=== PATIENT | female | born 1995 | race Caucasian/White ===

== ENCOUNTER 2016-03-13 21:56 | Emergency (ER) | payer OTHER ==
[2016-03-13 22:18] VITALS: BP 117/60; PULSE 83; TEMP 98.5; BMI 17.4
[2016-03-13] MEDS ORDERED: IBUPROFEN 400 MG TABLET (FP) PO ONE (22:23)
--- NOTE | 2016-03-13 22:28 | PDOC ---
History of Present Illness - General Chief Complaint: Cold Symptoms Stated Complaint: FACE PAIN Time Seen by Provider: 03/13/16 22:16 History Source: Patient - History of Present Illness Timing/Duration: reports: yesterday Associated Symptoms: reports: cough, facial pain, fever/chills, headache, nasal congestion, nasal drainage. denies: earache, shortness of breath, sore throat, wheezing Past History - Past Medical History Allergies/Adverse Reactions: Allergies Allergy/AdvReac Type Severity Reaction Status Date / Time No Known Drug Allergies Allergy Verified 03/13/16 22:07 TURKEY Allergy Intermediate Hives Uncoded 03/13/16 22:07 Home Medications: Ambulatory Orders Azithromycin 250 mg PO DAILY #6 tablet 03/13/16 Anemia: Yes Asthma: No Cancer: No Cardiac Disorders: No Diabetes: No Disorders: Yes (uti's) HTN: No Suicide Attempt (Hx): No Seizures: No Thyroid Disease: No - Reproductive History (#): 2 Para: 1 - Immunization History Immunization Up to Date: Yes - Psycho/Social/Smoking Cessation Hx Anxiety: No Suicidal Ideation: No Smoking Status: No Smoking History: Never smoked Have you smoked in the past 12 months: Yes Number of Cigarettes Smoked Daily: 2 Information on smoking cessation initiated: No 'Breaking Loose' booklet given: 03/01/14 Hx Alcohol Use: No Drug/Substance Use Hx: No Substance Use Type: Alcohol Hx Substance Use Treatment: No Review of Systems - Review of Systems Constitutional: Yes: Chills, Fever HEENTM: Yes: Nose Congestion. No: Ear Pain, Throat Pain Respiratory: Yes: Cough. No: Shortness of Breath *Physical Exam - Vital Signs Last Vital Signs Temp Pulse Resp BP Pulse Ox 98.5 F 83 18 117/60 98 03/13/16 22:08 03/13/16 22:08 03/13/16 22:08 03/13/16 22:08 03/13/16 22:08 - Physical Exam General Appearance: Yes: Appropriately Dressed HEENT: positive: EOMI, Normal Voice, TMs Normal, Pharynx Normal, Sinus Tenderness (to maxillary sinuses b/l). negative: Scleral Icterus (L), Muffled/ Hoarse voice, Pharyngeal Erythema Neck: positive: Supple. negative: Lymphadenopathy (R), Lymphadenopathy (L) Respiratory/Chest: negative: Respiratory Distress Integumentary: positive: Dry, Warm Neurologic: positive: Fully Oriented, Alert, Normal Mood/Affect Medical Decision Making - Medical Decision Making 03/13/16 22:23 20-year-old female presents with headache with nasal congestion, clear rhinorrhea, facial pain and subj fever since yesterday. No sore throat, ear pain , body aches, n/v/d. No sick contacts. Pt appears uncomfortable in ED w/ sig ttp over maxillary sinuses concerning for possible sinusitis. Dc w/ zpack and supportive tx 03/13/16 22:28 *DC/Admit/Observation/Transfer Diagnosis at time of Disposition: URI (upper respiratory infection) Qualifiers: URI type: unspecified viral URI Qualified Code(s): J06.9 - Acute upper respiratory infection, unspecified; B97.89 - Other viral agents as the cause of diseases classified elsewhere - Discharge Dispostion Disposition: HOME Condition at time of disposition: Good - Prescriptions Prescriptions: Azithromycin 250 mg PO DAILY #6 tablet - Patient Instructions Printed Discharge Instructions: DI for Viral Upper Respiratory Infection -- Adult, Sinusitis
== END 2016-03-13 22:30 | disposition home or self-care (01) ==
LOC: JERFT 21:56 → JER 21:56 → JERFT 22:30
DX: J06.9 Acute upper respiratory infection, unspecified (principal); B97.89 Other viral agents as the cause of diseases classified elsewhere
CPT/HCPCS: 99281-25

== ENCOUNTER 2016-04-21 00:16 | Emergency (ER) | payer OTHER ==
[2016-04-21] MEDS ORDERED: SODIUM CHLORIDE 0.9% 1000 ML INFUS.BAG IV ONE (00:53)
[2016-04-21] MEDS ORDERED: ONDANSETRON 4 MG/2 ML VIAL IVPUSH ONE ×2 (00:56→02:59)
[2016-04-21] MEDS ORDERED: KETOROLAC TROMETHAMINE 15 MG/ML VIAL IVPUSH ONE (00:56)
[2016-04-21 01:01] VITALS: BMI 16.8
[2016-04-21] MEDS ORDERED: ONDANSETRON 4 MG/2 ML VIAL ONE ×3 (01:11→03:04)
[2016-04-21] MEDS ORDERED: KETOROLAC TROMETHAMINE 30 MG/1 ML VIAL ONE (01:11)
--- NOTE | 2016-04-21 01:14 | PDOC ---
History of Present Illness - General Chief Complaint: Pain Stated Complaint: ABD PAIN,DIARRHEA Time Seen by Provider: 04/21/16 00:26 - History of Present Illness Initial Comments: 04/21/16 01:10 CHIEF COMPLAINT: abdominal pain, vomiting, diarrhea HISTORY OF PRESENT ILLNESS: 20 yo A3 F with hx of gastritis and anemia presents to ED with severe abdominal pain accompanied by vomiting and diarrhea since today. Patient states she has been having stomach pain for the past week and it became unbearable today. She states she has not been able to eat very much this week but had fried chicken and cymraes fries this morning and then threw it up. She denies any fever, chills, constipation, or rectal bleeding. She states that she sees Dr. Capellan for GI and was told she might have celiac disease; she has a follow up appointment on 05/12. No recent travel or sick contacts. PAST MEDICAL HISTORY: Denies past medical history FAMILY HISTORY: Denies SOCIAL HISTORY: "I smoke hookah." Denies tobacco, alcohol, illicit drug use. SURGICAL HISTORY: D&C April 2015 ALLERGIES: No known drug allergies REVIEW OF SYSTEMS General/Constitutional: Denies fever or chills. Denies weakness, weight change. HEENT: Denies change in vision. Denies ear pain or discharge. Denies sore throat. Cardiovascular: Denies chest pain or shortness of breath. Respiratory: Denies cough, wheezing, or hemoptysis. Gastrointestinal: Epigastric pain, nausea, vomiting, diarrhea. Denies rectal bleeding. Genitourinary: Denies dysuria, frequency, or change in urination. Musculoskeletal: Denies joint or muscle swelling or pain. Denies neck or back pain. Skin and breasts: Denies rash or easy bruising. Neurologic: Denies headache, vertigo, loss of consciousness, or loss of sensation. PHYSICAL EXAM General Appearance: Frail, uncomfortable appearing, tearful. HEENT: Discolored teeth with worn enamel. EOMI, PERRLA, normal ENT inspection, normal voice, TMs normal, pharynx normal. No conjunctival pallor. No photophobia, scleral icterus. Respiratory/Chest: Lungs CTAB. Cardiovascular: RRR. S1, S2. Vascular Pulses: Dorsalis-Pedis (R): 2+, Dorsalis-Pedis (L): 2+ Gastrointestinal/Abdominal: Diffuse tenderness and guarding. Abdomen soft, non distended. No organomegaly, pulsatile mass, hernia, hepatomegaly, splenomegaly. Musculoskeletal/Extremities: Normal inspection. FROM of all extremities, normal capillary refill. Pelvis Stable. No CVA tenderness. No tenderness to extremities, pedal edema, swelling, erythema or deformity. Integumentary: Appropriate color, dry, warm. No cyanosis, erythema, jaundice or rash Neurologic: guinea pig breeder II-XII intact. Fully oriented, alert. Appropriate mood/affect. Motor strength 5/5. No appreciable EOM palsy, facial droop or sensory deficit. 04/21/16 02:58 Past History - Past Medical History Allergies/Adverse Reactions: Allergies Allergy/AdvReac Type Severity Reaction Status Date / Time No Known Drug Allergies Allergy Verified 04/21/16 00:21 TURKEY Allergy Intermediate Hives Uncoded 04/21/16 00:21 Home Medications: Ambulatory Orders Nitrofurantoin Macrocrystal [Nitrofurantoin] 100 mg PO BID #56 capsule 04/21/16 Ondansetron [Zofran *Odt*] 8 mg SL TID PRN #20 od.tablet 04/21/16 Anemia: Yes Asthma: No Cancer: No Cardiac Disorders: No Diabetes: No Disorders: Yes (uti's) HTN: No Suicide Attempt (Hx): No Seizures: No Thyroid Disease: No - Reproductive History (#): 2 Para: 1 - Immunization History Immunization Up to Date: Yes - Psycho/Social/Smoking Cessation Hx Anxiety: No Suicidal Ideation: No Smoking Status: No Smoking History: Never smoked Have you smoked in the past 12 months: Yes Number of Cigarettes Smoked Daily: 2 Information on smoking cessation initiated: No 'Breaking Loose' booklet given: 03/01/14 Hx Alcohol Use: No Drug/Substance Use Hx: No Substance Use Type: Alcohol Hx Substance Use Treatment: No *Physical Exam - Vital Signs Last Vital Signs Temp Pulse Resp BP Pulse Ox 97.6 F 111 H 14 103/53 98 04/21/16 00:22 04/21/16 00:22 04/21/16 00:22 04/21/16 00:22 04/21/16 00:22 ED Treatment Course - LABORATORY CBC & Chemistry Diagram: 04/21/16 01:00 04/21/16 01:00 - Medications Given in the ED: ED Medications Discontinued Medications Generic Name Dose Route Start Last Admin Trade Name Vitor PRN Reason Stop Dose Admin Ketorolac Tromethamine 15 mg 04/21/16 00:56 04/21/16 01:08 Toradol Injection - IVPUSH 04/21/16 00:57 15 mg ONCE ONE Administration Ondansetron HCl 4 mg 04/21/16 00:56 04/21/16 01:08 Zofran Injection IVPUSH 04/21/16 00:57 4 mg ONCE ONE Administration Sodium Chloride 1,000 ml 04/21/16 00:53 04/21/16 01:08 Normal Saline - IV 04/21/16 00:54 1,000 ml ONCE ONE Administration Medical Decision Making - Medical Decision Making 04/21/16 02:58 20 yo A3 F with hx of gastritis and anemia presents to ED with severe abdominal pain accompanied by vomiting and diarrhea since today. -CBC, CMP, lipase, esr, crp -UA, UCx -15 mg Toradol IV -4 mg Zofran IV -Abdomen & pelvis CT with contrast Labs: WBC 12.8 UA: +blood, WBC 20 04/21/16 05:46 CT results: COMPARISON: CT abdomen and pelvis March 01, 2014 FINDINGS: There is no bowel obstruction, free air, or free fluid. Negative for diverticulitis or colitis. Normal air and contrast-filled appendix is noted. Normal kidneys urinary tracts and urinary bladder. The right ovary is somewhat prominent. Suspect a 3 cm right adnexal cyst. If there is pain in this area, ultrasound of the pelvis may help to characterize and exclude any acute [facility] SCRE[facility] pathology. Normal liver. Normal spleen. Normal pancreas. Normal adrenal glands. Read by: Ethan Gillette MD Discussed with patient that ultrasound is not available until 7 am. Patient states she does not want to stay and would prefer to follow up with ultrasound as outpatient. Patient states she will follow up with Anna Stockton, her OB provider for further care. Advised patient to keep appointment with GI as well. Advised patient of signs and symptoms for return to ER; patient verbalized understanding and agrees to plan. *DC/Admit/Observation/Transfer Diagnosis at time of Disposition: UTI (urinary tract infection) Qualifiers: Urinary tract infection type: site unspecified Hematuria presence: without hematuria Qualified Code(s): N39.0 - Urinary tract infection, site not specified - Discharge Dispostion Admit: No - Prescriptions Prescriptions: Nitrofurantoin Macrocrystal [Nitrofurantoin] 100 mg PO BID #56 capsule Ondansetron [Zofran *Odt*] 8 mg SL TID PRN #20 od.tablet PRN Reason: Nausea And/Or Vomiting - Referrals Referrals: Alexsandra Benavidez MD [Primary Care Provider] - Anna Stockton [Other] - Patient Instructions Printed Discharge Instructions: DI for Ovarian Cyst Additional Instructions: Please take medications as prescribed. As discussed, please follow-up with [facility] within the next 2-3 days for an ultrasound for further evaluation of your ovarian cyst. Please keep your appointment with Dr. Capellan as well. If you experience vaginal bleeding (more than one soaked pad an hour), severe pain to the lower sides of your stomach, fever, persistent vomiting or diarrhea, or any new or worsening symptoms, please return to the ER. - Post Discharge Activity Work/School Note: Back to Work
[2016-04-21 01:17] LABS: BASOPHIL 0.3 % (0-2.0); EOSINOPHIL 0.2 % (0-4.5); MCH 29.8 pg (25.7-33.7); MCHC 33.3 g/dl (32.0-36.0); MEAN CELL VOLUME 89.4 fl (80-96); MEAN PLT VOLUME 7.9 fl (7.5-11.1); NEUTROPHILS 86.9 % (42.8-82.8); PLATELET COUNT 206 K/MM3 (134-434); RDW 12.5 % (11.6-15.6); WHITE BLOOD COUNT 12.8 K/mm3 (4.0-10.0)
[2016-04-21 01:43] LABS: ALBUMIN 4.6 g/dl (3.4-5.0); ALK PHOS 67 U/L (45-117); ANION GAP 11 (8-16); BILIRUBIN,TOTAL 0.5 mg/dL (0.2-1.0); CALCIUM 9.4 mg/dL (8.5-10.1); CO2 25 mmol/L (21-32); CREATININE 0.7 mg/dL (0.55-1.02); GLUCOSE,RANDOM 81 mg/dL (74-106); SGOT/AST 23 U/L (15-37); SGPT/ALT 19 U/L (12-78); TOT PROT 8.2 g/dl (6.4-8.2)
[2016-04-21 03:21] LABS: URINE APPEARANCE CLOUDY; URINE BILIRUBIN NEGATIVE (NEGATIVE); URINE COLOR YELLOW; URINE GLUCOSE (UA) NEGATIVE (NEGATIVE); URINE KETONE 1+ (NEGATIVE); URINE NITRITE NEGATIVE (NEGATIVE); URINE PROTEIN NEGATIVE (NEGATIVE); URINE UROBILINOGEN NEGATIVE E.U./dl (0.2-1.0)
[2016-04-21 03:24] LABS: URINE BLOOD 1+ (NEGATIVE); URINE LEUK ESTERASE 3+ (NEGATIVE)
[2016-04-21 03:26] LABS: URINE MUCUS MANY; URINE RBC 20 /hpf (0-3); URINE WBC 35 /hpf (3-5)
--- NOTE | 2016-04-21 05:36 | PDOC ---
*Physical Exam - Vital Signs Last Vital Signs Temp Pulse Resp BP Pulse Ox 97.6 F 111 H 14 103/53 98 04/21/16 00:22 04/21/16 00:22 04/21/16 00:22 04/21/16 00:22 04/21/16 00:22 ED Treatment Course - LABORATORY CBC & Chemistry Diagram: 04/21/16 01:00 04/21/16 01:00 - ADDITIONAL ORDERS Additional order review: Laboratory Results 04/21/16 04/21/16 04/21/16 03:10 01:00 01:00 Sodium 141 Potassium 3.8 Chloride 105 Carbon Dioxide 25 Anion Gap 11 BUN 14 D Creatinine 0.7 D Creat Clearance w eGFR > 60 Random Glucose 81 D Calcium 9.4 Total Bilirubin 0.5 D AST 23 D ALT 19 Alkaline Phosphatase 67 D Total Protein 8.2 Albumin 4.6 Lipase 119 Urine Color Yellow Urine Appearance Cloudy Urine pH 5.0 D Ur Specific Watson 1.023 Urine Protein Negative Urine Glucose (UA) Negative Urine Ketones 1+ H Urine Blood 1+ H Urine Nitrite Negative Urine Bilirubin Negative Urine Urobilinogen Negative Ur Leukocyte Esterase 3+ H D Urine RBC 20 Urine WBC 35 Ur Epithelial Cells Many Urine Mucus Many Urine HCG, Qual Negative 04/21/16 01:00 RBC 5.24 H D MCV 89.4 MCHC 33.3 RDW 12.5 MPV 7.9 Neutrophils % 86.9 H D Lymphocytes % 8.1 D Monocytes % 4.5 Eosinophils % 0.2 Basophils % 0.3 - Medications Given in the ED: ED Medications Discontinued Medications Generic Name Dose Route Start Last Admin Trade Name Danielq PRN Reason Stop Dose Admin Ketorolac Tromethamine 15 mg 04/21/16 00:56 04/21/16 01:08 Toradol Injection - IVPUSH 04/21/16 00:57 15 mg ONCE ONE Administration Ondansetron HCl 4 mg 04/21/16 00:56 04/21/16 01:08 Zofran Injection IVPUSH 04/21/16 00:57 4 mg ONCE ONE Administration Ondansetron HCl 4 mg 04/21/16 02:59 04/21/16 03:10 Zofran Injection IVPUSH 04/21/16 03:00 4 mg ONCE ONE Administration Sodium Chloride 1,000 ml 04/21/16 00:53 04/21/16 01:08 Normal Saline - IV 04/21/16 00:54 1,000 ml ONCE ONE Administration Medical Decision Making - Medical Decision Making 04/21/16 05:35 agree with care from SHAHEED Mederos *DC/Admit/Observation/Transfer Diagnosis at time of Disposition: UTI (urinary tract infection) - Discharge Dispostion Disposition: HOME - Prescriptions Prescriptions: Nitrofurantoin Macrocrystal [Nitrofurantoin] 100 mg PO BID #56 capsule Ondansetron [Zofran *Odt*] 8 mg SL TID PRN #20 od.tablet PRN Reason: Nausea And/Or Vomiting - Referrals Referrals: Anna Stockton [Other] Alexsandra Benavidez MD [Primary Care Provider] - - Patient Instructions Printed Discharge Instructions: DI for Ovarian Cyst Additional Instructions: Please take medications as prescribed. As discussed, please follow-up with [facility] within the next 2-3 days for an ultrasound for further evaluation of your ovarian cyst. Please keep your appointment with Dr. Capellan as well. If you experience vaginal bleeding (more than one soaked pad an hour), severe pain to the lower sides of your stomach, fever, persistent vomiting or diarrhea, or any new or worsening symptoms, please return to the ER. - Post Discharge Activity Work/School Note: Back to Work
[2016-04-21 06:13] VITALS: BP 138/79; PULSE 86; TEMP 98.5
== END 2016-04-21 06:10 | disposition home or self-care (01) ==
LOC: JER 00:16
PROC: 3E0333Z Introduction of Anti-inflammatory into Peripheral Vein, Percutaneous Approach (ICD-10-PCS; principal; 2016-04-21)
PROC: 3E033GC Introduction of Other Therapeutic Substance into Peripheral Vein, Percutaneous Approach (ICD-10-PCS; 2016-04-21)
DX: N39.0 Urinary tract infection, site not specified (principal)
CPT/HCPCS: 36415; 74177-TC; 80053; 81003; 81015; 83690; 84703; 85025; 85651; 87086; 96374; 96375; 96376; 99283-25

== ENCOUNTER 2017-08-17 13:32 | Emergency (ER) | payer OTHER ==
[2017-08-17 13:46] VITALS: BP 105/65; PULSE 87; TEMP 98.2; BMI 17.2
[2017-08-17] MEDS ORDERED: PSEUDOEPHEDRINE HCL 60 MG TABLET PO STA (14:33)
[2017-08-17] MEDS ORDERED: LORATADINE 10 MG TABLET PO ONE (14:33)
[2017-08-17] MEDS ORDERED: IBUPROFEN 400 MG TABLET (FP) PO ONE ×2 (14:34→14:51)
[2017-08-17] MEDS ORDERED: LORATADINE 10 MG TABLET ONE (14:37)
[2017-08-17] MEDS ORDERED: PSEUDOEPHEDRINE HCL 60 MG TABLET ONE (14:40)
--- NOTE | 2017-08-17 14:49 | PDOC ---
History of Present Illness - General Chief Complaint: Cold Symptoms Stated Complaint: COUGH, RASH Time Seen by Provider: 08/17/17 14:13 History Source: Patient Exam Limitations: No Limitations - History of Present Illness Initial Comments: 08/17/17 14:50 c/o cough stuffy nose sore throat for 2 weeks. Pt has rash to her back that she has had for years, worse after going to the beach 2 days ago. no fever no abd pain no back pain , daughter home with bronchitis Timing/Duration: reports: constant Severity: reports: mild Past History - Past Medical History Allergies/Adverse Reactions: Allergies Allergy/AdvReac Type Severity Reaction Status Date / Time No Known Drug Allergies Allergy Verified 08/17/17 13:41 TURKEY Allergy Intermediate Hives Uncoded 08/17/17 13:41 Home Medications: Ambulatory Orders Fluticasone Prop 0.05% Nasal [Flonase -] 1 - 2 spray NS DAILY #1 spray.pump Loratadine [Claritin -] 10 mg PO DAILY #14 tablet 08/17/17 Selenium Sulfide [Selenium Sulfide 2.25% Shampoo] 1 applic TP DAILY 7 Days #1 bottle 08/17/17 Anemia: Yes Asthma: No Cancer: No Cardiac Disorders: No COPD: No Diabetes: No Disorders: Yes (uti's) HTN: No Seizures: No Thyroid Disease: No - Reproductive History (#): 2 Para: 1 - Immunization History Immunization Up to Date: Yes - Suicide/Smoking/Psychosocial Hx Smoking Status: No Smoking History: Former smoker Have you smoked in the past 12 months: No Number of Cigarettes Smoked Daily: 2 Information on smoking cessation initiated: No 'Breaking Loose' booklet given: 03/01/14 Hx Alcohol Use: No Drug/Substance Use Hx: No Substance Use Type: Alcohol Hx Substance Use Treatment: No *Physical Exam - Vital Signs Last Vital Signs Temp Pulse Resp BP Pulse Ox 98.2 F 87 19 105/65 96 08/17/17 13:42 08/17/17 13:42 08/17/17 13:42 08/17/17 13:42 08/17/17 13:42 - Physical Exam General Appearance: Yes: Nourished, Appropriately Dressed HEENT: positive: EOMI, MUNIR, TMs Normal, Nasal Congestion Neck: positive: Supple Respiratory/Chest: positive: Lungs Clear, Normal Breath Sounds. negative: Crackles, Rales, Rhonchi, Stridor, Wheezing Cardiovascular: positive: Regular Rhythm, Regular Rate Gastrointestinal/Abdominal: positive: Normal Bowel Sounds, Soft Lymphatic: negative: Adenopathy Musculoskeletal: positive: Normal Inspection Extremity: positive: Normal Capillary Refill, Normal Inspection, Normal Range of Motion Integumentary: positive: Normal Color, Dry, Warm, Rash (back with pityriasis versicolor, patches of discoloration, scaly, some are paules some are macules ) Neurologic: positive: pricing clerk II-XII NML intact, Fully Oriented, Alert, Normal Mood/ Affect, Normal Response, Motor Strength 06/30 Medical Decision Making - Medical Decision Making 08/17/17 14:52 cc: cough stuffy nose, sore throat, joint pain, no fever will check for strep meds now for congestion, antihistamine and motrin 08/17/17 15:01 neg strep pos URI allergy like symptoms will prescribe selenium for the pityriasis rash strict follow up with PMD as discussed *DC/Admit/Observation/Transfer Diagnosis at time of Disposition: Pityriasis versicolor, Nasal congestion with rhinorrhea - Discharge Dispostion Disposition: HOME Condition at time of disposition: Good - Prescriptions Prescriptions: Fluticasone Prop 0.05% Nasal [Flonase -] 1 - 2 spray NS DAILY #1 spray.pump Loratadine [Claritin -] 10 mg PO DAILY #14 tablet Selenium Sulfide [Selenium Sulfide 2.25% Shampoo] 1 applic TP DAILY 7 Days #1 bottle - Referrals Referrals: Marquise Gamino [Primary Care Provider] - Reid Ye MD [Staff Physician] - - Patient Instructions Printed Discharge Instructions: Pityriasis Versicolor Additional Instructions: use the prescription shampoo for the rash on your back take claritin as prescribed use flonase nasal spray as directed take motrin as needed for pain follow with for follow up, for primary care if you do not use your current primary care , but you must follow up regarding the joint pains next week for further follow up - Post Discharge Activity
== END 2017-08-17 15:04 | disposition home or self-care (01) ==
LOC: JERFT 13:32
DX: B36.0 Pityriasis versicolor (principal); J34.89 Other specified disorders of nose and nasal sinuses
CPT/HCPCS: 87070; 87430; 99281-25

== ENCOUNTER 2018-02-01 02:43 | Emergency (ER) | payer OTHER ==
--- NOTE | 2018-02-01 03:45 | PDOC ---
History of Present Illness - General Chief Complaint: Migraine Headache Stated Complaint: PAIN/DIZZINESS Time Seen by Provider: 02/01/18 03:30 History Source: Patient - History of Present Illness Initial Comments: 02/01/18 04:56 22 year old female with headache and photophobia, chest discomfort x 4 days with bodyaches patient also reports denies neck pain/ stiffness, rash. patient reports that she was treated for + chlamydia 1 month ago now with green vaginal discharge and dysuria. denies any new STI exposure reports no sexcual acitivty for 1 month. denies NVD, abdominal pain / flank pain. patient 1 02/01/18 05:54 Past History - Past Medical History Allergies/Adverse Reactions: Allergies Allergy/AdvReac Type Severity Reaction Status Date / Time No Known Drug Allergies Allergy Verified 08/17/17 13:41 TURKEY Allergy Intermediate Hives Uncoded 08/17/17 13:41 Home Medications: Ambulatory Orders Fluticasone Prop 0.05% Nasal [Flonase -] 1 - 2 spray NS DAILY #1 spray.pump Loratadine [Claritin -] 10 mg PO DAILY #14 tablet 08/17/17 Selenium Sulfide [Selenium Sulfide 2.25% Shampoo] 1 applic TP DAILY 7 Days #1 bottle 08/17/17 Cephalexin Monohydrate [Keflex -] 500 mg PO BID #20 capsule 02/01/18 metroNIDAZOLE 0.75% VAG. GEL [Metrogel 0.75% *Vaginal Gel* -] 1 applic VG BID # 10 tube 02/01/18 Anemia: Yes Asthma: No Cancer: No Cardiac Disorders: No COPD: No Diabetes: No Disorders: Yes (uti's) HTN: No Seizures: No Thyroid Disease: No - Reproductive History (#): 2 Para: 1 - Immunization History Immunization Up to Date: Yes - Suicide/Smoking/Psychosocial Hx Smoking Status: No Smoking History: Never smoked Have you smoked in the past 12 months: No Number of Cigarettes Smoked Daily: 2 'Breaking Loose' booklet given: 03/01/14 Hx Alcohol Use: No Drug/Substance Use Hx: No Substance Use Type: Alcohol Hx Substance Use Treatment: No Review of Systems - Review of Systems Able to Perform ROS?: Yes Is the patient limited Maori proficient: No Constitutional: Yes: Loss of Appetite : Yes: Dysuria, Other (vaginal discharge) Musculoskeletal: No: Symptoms Reported, See HPI, Back Pain, Gout, Joint Pain, Joint Swelling, Muscle Pain, Muscle Weakness, Neck Pain, Joint Stiffness, Other Neurological: Yes: Headache, Other (photophobia) *Physical Exam - Vital Signs Last Vital Signs Temp Pulse Resp BP Pulse Ox 98.4 F 80 18 103/61 99 02/01/18 03:35 02/01/18 03:35 02/01/18 03:35 02/01/18 03:35 02/01/18 03:35 - Physical Exam General Appearance: Yes: Appropriately Dressed HEENT: positive: Other (no nuchal rigidity) Respiratory/Chest: positive: Lungs Clear, Normal Breath Sounds Cardiovascular: positive: Regular Rate Female Pelvic Exam: positive: normal external exam, other (green frothy discharge). negative: CMT Gastrointestinal/Abdominal: positive: Normal Bowel Sounds, Soft Musculoskeletal: positive: Normal Inspection Extremity: positive: Normal Capillary Refill, Normal Inspection, Normal Range of Motion Integumentary: positive: Normal Color, Dry, Warm Neurologic: positive: Fully Oriented, Alert, Normal Mood/Affect Moderate Sedation - Procedure Monitoring Vital Signs: Procedure Monitoring Vital Signs Temperature 98.4 F 02/01/18 03:35 Pulse Rate 80 02/01/18 03:35 Respiratory Rate 18 02/01/18 03:35 Blood Pressure 103/61 02/01/18 03:35 O2 Sat by Pulse Oximetry (%) 99 02/01/18 03:35 ED Treatment Course - LABORATORY CBC & Chemistry Diagram: 02/01/18 05:13 02/01/18 05:13 Medical Decision Making - Medical Decision Making 02/01/18 05:50 A: headache; UTI; BV P: labs UA IVF toradol reglan 02/01/18 06:50 patient has no headache at this time . photophobia resolved. will treat for BV and UTI. patient to follow up with pcp. will d/c home. *DC/Admit/Observation/Transfer Diagnosis at time of Disposition: Bacterial vaginosis UTI (urinary tract infection) Qualifiers: Urinary tract infection type: acute cystitis Hematuria presence: without hematuria Qualified Code(s): N30.00 - Acute cystitis without hematuria Headache Qualifiers: Headache type: tension-type Headache chronicity pattern: acute headache Intractability: not intractable Qualified Code(s): G44.209 - Tension-type headache, unspecified, not intractable - Discharge Dispostion Disposition: HOME Condition at time of disposition: Stable - Prescriptions Prescriptions: Cephalexin Monohydrate [Keflex -] 500 mg PO BID #20 capsule metroNIDAZOLE 0.75% VAG. GEL [Metrogel 0.75% *Vaginal Gel* -] 1 applic VG BID # 10 tube - Referrals Referrals: Marquise Gamino [Primary Care Provider] - - Patient Instructions Printed Discharge Instructions: Bacterial Vaginosis, Urinary Tract Infection Additional Instructions: drink plenty of fluids take cephalexin as prescribed follow up with your doctor as soon as possible. return to the ER if symptoms worsen - Post Discharge Activity Forms/Work/School Notes: Back to Work
[2018-02-01] MEDS ORDERED: ACETAMINOPHEN 325 MG TABLET (FP) PO ONE (03:46)
[2018-02-01] MEDS ORDERED: ACETAMINOPHEN 325 MG TABLET (FP) ONE (03:48)
[2018-02-01 04:02] VITALS: BMI 16.9
[2018-02-01 04:48] LABS: URINE APPEARANCE CLEAR; URINE BILIRUBIN NEGATIVE (<2.0 mg/dL); URINE COLOR LTYELLOW; URINE GLUCOSE (UA) NEGATIVE (NEGATIVE); URINE KETONE NEGATIVE (NEGATIVE); URINE LEUK ESTERASE 3+ (NEGATIVE); URINE NITRITE NEGATIVE (NEGATIVE); URINE PROTEIN NEGATIVE (NEGATIVE); URINE UROBILINOGEN NEGATIVE mg/dL (0.2-1.0)
[2018-02-01 04:49] LABS: HCG,QUALITATIVE URINE Negative
[2018-02-01 04:53] LABS: EPI CELLS FEW /HPF (FEW); URINE MUCUS RARE
[2018-02-01] MEDS ORDERED: SODIUM CHLORIDE 1,000 ML IV STA (04:53)
[2018-02-01] MEDS ORDERED: METOCLOPRAMIDE HCL INJECTION 10 MG/2 ML VIAL IVPB ONE (04:53)
[2018-02-01] MEDS ORDERED: KETOROLAC TROMETHAMINE 30 MG/1 ML VIAL IVPUSH ONE (04:54)
[2018-02-01] MEDS ORDERED: METOCLOPRAMIDE HCL INJECTION 10 MG/2 ML VIAL ONE (05:17)
[2018-02-01] MEDS ORDERED: KETOROLAC TROMETHAMINE 30 MG/1 ML VIAL ONE (05:17)
[2018-02-01 06:04] LABS: BASO % 0.4 % (0-2.0); EOS % 0.5 % (0-4.5); HEMATOCRIT 36.5 % (32.4-45.2); HEMOGLOBIN 12.2 GM/dL (10.7-15.3); LYMPH % 15.6 % (8-40); MCH 30.7 pg (25.7-33.7); MCHC 33.5 g/dl (32.0-36.0); MEAN CELL VOLUME 91.6 fl (80-96); MEAN PLT VOLUME 7.9 fl (7.5-11.1); MONO % 7.9 % (3.8-10.2); NEUT % 75.6 % (42.8-82.8); PLATELET COUNT 170 K/MM3 (134-434); RBC 3.98 M/mm3 (3.60-5.2); WHITE BLOOD COUNT 7.9 K/mm3 (4.0-10.0)
[2018-02-01 06:27] LABS: ALBUMIN 3.7 g/dl (3.4-5.0); ALK PHOS 66 U/L (45-117); ANION GAP 5 MMOL/L (8-16); BILIRUBIN,TOTAL 0.3 mg/dL (0.2-1); BLOOD UREA NITROGEN 8 mg/dL (7-18); CALCIUM 8.3 mg/dL (8.5-10.1); CHLORIDE 105 mmol/L (98-107); CO2 29 mmol/L (21-32); CREATININE 0.5 mg/dL (0.55-1.3); GLUCOSE,RANDOM 80 mg/dL (74-106); POTASSIUM 3.8 mmol/L (3.5-5.1); SGOT/AST 25 U/L (15-37); SGPT/ALT 26 U/L (13-61); SODIUM 140 mmol/L (136-145); TOT PROT 6.9 g/dl (6.4-8.2)
[2018-02-01 06:51] VITALS: BP 96/66; PULSE 78; TEMP 98.1
--- NOTE | 2018-02-01 16:00 | EKG ---
Test Reason : Blood Pressure : / mmHG Vent. Rate : 080 BPM Atrial Rate : 080 BPM P-R Int : 148 ms QRS Dur : 076 ms QT Int : 362 ms P-R-T Axes : 072 094 080 degrees QTc Int : 417 ms POOR DATA QUALITY, INTERPRETATION MAY BE ADVERSELY AFFECTED NORMAL SINUS RHYTHM RIGHTWARD AXIS BORDERLINE ECG WHEN COMPARED WITH ECG OF 22-APR-2015 15:15, NO SIGNIFICANT CHANGE WAS FOUND Confirmed by VIANCA MEJIA, ESTRADA ([id number]) on 02/01/2018 3:59:28 PM Referred By: Confirmed By:ESTRADA COLEY MD
== END 2018-02-01 07:02 | disposition home or self-care (01) ==
LOC: JER 02:43
PROC: 3E033GC Introduction of Other Therapeutic Substance into Peripheral Vein, Percutaneous Approach (ICD-10-PCS; principal; 2018-02-01)
PROC: 3E0333Z Introduction of Anti-inflammatory into Peripheral Vein, Percutaneous Approach (ICD-10-PCS; 2018-02-01)
DX: N30.00 Acute cystitis without hematuria (principal); N76.0 Acute vaginitis; B96.89 Other specified bacterial agents as the cause of diseases classified elsewhere; G44.209 Tension-type headache, unspecified, not intractable
CPT/HCPCS: 36415; 80053; 81003; 81015; 84703; 85025; 87086; 93005; 93010; 96374; 96375; 99282-25; J7030

== ENCOUNTER 2018-04-19 21:59 | Emergency (ER) | payer OTHER ==
[2018-04-19 22:11] VITALS: BP 113/64; PULSE 98; TEMP 102.3; BMI 17.9
--- NOTE | 2018-04-19 23:11 | PDOC ---
History of Present Illness - General Chief Complaint: Cold Symptoms Stated Complaint: CHEST PAIN Time Seen by Provider: 04/19/18 22:51 History Source: Patient Exam Limitations: No Limitations Past History - Past Medical History Allergies/Adverse Reactions: Allergies Allergy/AdvReac Type Severity Reaction Status Date / Time No Known Drug Allergies Allergy Verified 04/19/18 22:09 TURKEY Allergy Intermediate Hives Uncoded 04/19/18 22:09 Home Medications: Ambulatory Orders Fluticasone Prop 0.05% Nasal [Flonase -] 1 - 2 spray NS DAILY #1 spray.pump Loratadine [Claritin -] 10 mg PO DAILY #14 tablet 08/17/17 Selenium Sulfide [Selenium Sulfide 2.25% Shampoo] 1 applic TP DAILY 7 Days #1 bottle 08/17/17 Cephalexin Monohydrate [Keflex -] 500 mg PO BID #20 capsule 02/01/18 metroNIDAZOLE 0.75% VAG. GEL [Metrogel 0.75% *Vaginal Gel* -] 1 applic VG BID # 10 tube 02/01/18 Anemia: Yes Asthma: No Cancer: No Cardiac Disorders: No COPD: No Diabetes: No Disorders: No HTN: No Seizures: No Thyroid Disease: No Other medical history: anorexia - Reproductive History (#): 2 Para: 1 - Immunization History Immunization Up to Date: Yes - Suicide/Smoking/Psychosocial Hx Smoking Status: No Smoking History: Never smoked Have you smoked in the past 12 months: No Number of Cigarettes Smoked Daily: 2 'Breaking Loose' booklet given: 03/01/14 Hx Alcohol Use: No Drug/Substance Use Hx: No Substance Use Type: Alcohol Hx Substance Use Treatment: No *Physical Exam - Vital Signs Last Vital Signs Temp Pulse Resp BP Pulse Ox 102.3 F H 98 H 18 113/64 98 04/19/18 22:09 04/19/18 22:09 04/19/18 22:09 04/19/18 22:09 04/19/18 22:09 - Physical Exam General Appearance: No: Apparent Distress HEENT: positive: Pharyngeal Erythema, Tonsillar Exudate. negative: Muffled/ Hoarse voice, Nasal Congestion, Rhinorrhea Neck: positive: Lymphadenopathy (R), Lymphadenopathy (L) (+B/L tonsillar lymphadenopathy) Respiratory/Chest: positive: Lungs Clear, Normal Breath Sounds. negative: Respiratory Distress Cardiovascular: positive: Regular Rhythm, Tachycardia Gastrointestinal/Abdominal: positive: Normal Bowel Sounds, Soft. negative: Tender, Distended, Guarding, Rebound Integumentary: positive: Normal Color Neurologic: positive: Alert, Normal Mood/Affect Moderate Sedation - Procedure Monitoring Vital Signs: Procedure Monitoring Vital Signs Temperature 102.3 F H 04/19/18 22:09 Pulse Rate 98 H 04/19/18 22:09 Respiratory Rate 18 04/19/18 22:09 Blood Pressure 113/64 04/19/18 22:09 O2 Sat by Pulse Oximetry (%) 98 04/19/18 22:09 Medical Decision Making - Medical Decision Making 22 y/o F with hx of anorexia presents with fever, sore throat, swollen tonsils, SCOTT and body aches x 3 days. Mentions fever actually started today. Denies nasal congestion, rhinorrhea, cough, sob, cp, abd pain, vomiting, diarrhea, recent travel, sick contacts PE consistent with strep pharyngitis (patient meets 4/4 Cent[facility] Criteria) Patient wanted to get UCG testing before receiving any meds 04/19/18 23:11 Patient treated for strep throat with Motrin, Decadron and IM Penicillin Repeat temp 100.5 Patient feeling better and requesting to go home 04/20/18 00:43 *DC/Admit/Observation/Transfer Diagnosis at time of Disposition: Strep pharyngitis - Discharge Dispostion Disposition: HOME Condition at time of disposition: Improved Decision to Admit order: No - Referrals Referrals: Marquise Gamino [Primary Care Provider] - 2 Days - Patient Instructions Printed Discharge Instructions: DI for Strep Throat Additional Instructions: Thank you for choosing [facility]. It was a pleasure taking care of you. You were treated here for strep throat. You may take Motrin 600 mg every 4 hours by mouth as needed for mild to moderate pain. Take Motrin with food. Do salt water gargles Follow-up with your doctor in 2-3 days. Return to the Emergency Department if your symptoms worsen or persist or have other concerning symptoms. - Post Discharge Activity
[2018-04-19] MEDS ORDERED: PENICILLIN G BENZATHINE 1,200,000 UNIT/2 ML PFS IM ONE (23:39)
[2018-04-19] MEDS ORDERED: DEXAMETHASONE LIQUID 0.5 MG/5 ML 240 ML BULK BOTTLE PO ONE (23:39)
[2018-04-19] MEDS ORDERED: IBUPROFEN 400 MG TABLET (FP) PO ONE (23:39)
[2018-04-20] MEDS ORDERED: IBUPROFEN 400 MG TABLET (FP) PO ONE (00:17)
[2018-04-20] MEDS ORDERED: DEXAMETHASONE SOD PHOSPHATE 10 MG/1 ML VIAL ONE (00:17)
[2018-04-20] MEDS ORDERED: PENICILLIN G BENZATHINE 1,200,000 UNIT/2 ML PFS IM ONE (00:18)
== END 2018-04-20 01:03 | disposition home or self-care (01) ==
LOC: JER 21:59
DX: J02.0 Streptococcal pharyngitis (principal); B95.5 Unspecified streptococcus as the cause of diseases classified elsewhere
CPT/HCPCS: 84703; 96372; 99282-25

== ENCOUNTER 2018-07-10 15:15 | Emergency (ER) | payer OTHER ==
[2018-07-10] MEDS ORDERED: SODIUM CHLORIDE 500 ML IV STA (15:17)
--- NOTE | 2018-07-10 15:17 | PDOC ---
Rapid Medical Evaluation Time Seen by Provider: 07/10/18 15:15 Medical Evaluation: Allergies Allergy/AdvReac Type Severity Reaction Status Date / Time No Known Drug Allergies Allergy Verified 07/10/18 15:15 TURKEY Allergy Intermediate Hives Uncoded 07/10/18 15:15 07/10/18 15:16 HPI: with spotting 16 weeks gravid PE: No gross deficits ORDERS: CBC, CMP, PT/INR; Quant B US Discharge Disposition - Diagnosis Vaginal bleeding in - Referrals - Patient Instructions - Post Discharge Activity
[2018-07-10 15:19] VITALS: BMI 17.7
[2018-07-10] MEDS ORDERED: ACETAMINOPHEN 1000 MG/100 ML VIAL (NON FORMULARY) IVPB ONE (16:32)
[2018-07-10] MEDS ORDERED: SODIUM CHLORIDE 1,000 ML IV STA (16:32)
[2018-07-10] MEDS ORDERED: METOCLOPRAMIDE HCL INJECTION 10 MG/2 ML VIAL IVPB ONE (16:32)
--- NOTE | 2018-07-10 16:45 | PDOC ---
History of Present Illness - General Chief Complaint: Vaginal Bleeding Stated Complaint: R/O MISSCARIAGE Time Seen by Provider: 07/10/18 15:15 History Source: Patient - History of Present Illness Timing/Duration: reports: other (today) Abdominal Pain Onset Location: reports: other (lower abd and back) Past History - Past Medical History Allergies/Adverse Reactions: Allergies Allergy/AdvReac Type Severity Reaction Status Date / Time No Known Drug Allergies Allergy Verified 07/10/18 15:15 TURKEY Allergy Intermediate Hives Uncoded 07/10/18 15:15 Home Medications: Ambulatory Orders No122/Iron/Folic Acid [ Multi Tablet] 1 each PO DAILY 07/10/18 Anemia: Yes Asthma: No Cancer: No Cardiac Disorders: No COPD: No Diabetes: No Disorders: Yes (uti's) HTN: No Seizures: No Thyroid Disease: No - Reproductive History (#): 2 Para: 1 - Immunization History Immunization Up to Date: Yes - Suicide/Smoking/Psychosocial Hx Smoking Status: No Smoking History: Never smoked Have you smoked in the past 12 months: Yes Number of Cigarettes Smoked Daily: 2 'Breaking Loose' booklet given: 03/01/14 Hx Alcohol Use: No Drug/Substance Use Hx: No Substance Use Type: None Hx Substance Use Treatment: No Review of Systems - Review of Systems Constitutional: No: Chills, Fever ABD/GI: Yes: Nausea, Vomiting, Abdominal cramping. No: Blood Streaked Bowels, Constipated, Diarrhea, Rectal Bleeding : No: Dysuria, Flank Pain Musculoskeletal: Yes: Back Pain *Physical Exam - Vital Signs Last Vital Signs Temp Pulse Resp BP Pulse Ox 98.2 F 74 16 96/58 L 98 07/10/18 15:16 07/10/18 15:16 07/10/18 15:16 07/10/18 15:16 07/10/18 15:16 - Physical Exam General Appearance: Yes: Appropriately Dressed, Mild Distress HEENT: positive: Normal Voice Neck: positive: Supple Respiratory/Chest: negative: Respiratory Distress Gastrointestinal/Abdominal: positive: Normal Bowel Sounds, Tender, Soft Musculoskeletal: negative: CVA Tenderness Integumentary: positive: Dry, Warm Neurologic: positive: Fully Oriented, Alert, Normal Mood/Affect ED Treatment Course - LABORATORY CBC & Chemistry Diagram: 07/10/18 16:28 07/10/18 16:40 Medical Decision Making - Medical Decision Making 07/10/18 16:38 22 yo F, h/o gastritis, undernourished, (elective AB x 2), currently ~9- 10 weeks per pt w/ ? blighted ovum on outside US 07/02/2018 per pt, pain with abdominal cramping and vaginal spotting today. Complaining of intermittent nausea, vomiting that has been present throughout . With no change in baseline. Denies any dysuria, fever or chills See exam Threatened AB s/p US > 1 week ago w/ ? "blighted ovum" per pt Hypotensive here w/ diffuse ttp to lower abd and back -pain control -antiemetic -IVF -labs -US 07/10/18 17:23 US read as irreg ges sac ~6 weeks c/w probable anembryonic /blighted ovum, no def embryonic pole/yolk sac seen. UA w/ no e/o infxn. RH+. Beta >32K, no old to compare on records. Pt since improved w/ BP 105/62 on rpt. No sig vaginal bleeding at this time. Stable for discharge. Now reports that she has an appointment with her SECRETARY RECEPTIONIST tomorrow for medical management *DC/Admit/Observation/Transfer Diagnosis at time of Disposition: Vaginal bleeding in , Blighted ovum - Discharge Dispostion Disposition: HOME Condition at time of disposition: Stable - Referrals Referrals: Conrad Smith MD [Primary Care Provider] - - Patient Instructions Printed Discharge Instructions: Miscarriage Additional Instructions: It appears that you have a blighted ovum which is a type of early miscarriage where a fertilized egg does not develop into an embryo It is normal to have some abdominal cramping and vaginal bleed during this time. You can take tylenol for pain as needed Please follow up with your OB this week - Post Discharge Activity
[2018-07-10] MEDS ORDERED: ACETAMINOPHEN INJECTION 100 ML IVPB ONE (16:49)
[2018-07-10] MEDS ORDERED: METOCLOPRAMIDE HCL INJECTION 10 MG/2 ML VIAL ONE (16:49)
[2018-07-10 17:07] LABS: BASO % 0.7 % (0-2.0); EOS % 0.5 % (0-4.5); HEMATOCRIT 39.3 % (32.4-45.2); HEMOGLOBIN 13.1 GM/dL (10.7-15.3); LYMPH % 35.5 % (8-40); MCHC 33.4 g/dl (32.0-36.0); MEAN CELL VOLUME 90.1 fl (80-96); MONO % 7.7 % (3.8-10.2); NEUT % 55.6 % (42.8-82.8); PLATELET COUNT 185 K/MM3 (134-434); RBC 4.36 M/mm3 (3.60-5.2); RDW 12.1 % (11.6-15.6); WHITE BLOOD COUNT 4.2 K/mm3 (4.0-10.0)
[2018-07-10 17:12] LABS: HCG,QUALITATIVE URINE Positive
[2018-07-10 17:17] LABS: EPI CELLS 2.7 /HPF (0-5/HPF); PH,URINE >= 9.0 (5.0-8.0); URINE APPEARANCE CLEAR; URINE BACTERIA 27.1 /hpf (NEGATIVE); URINE BILIRUBIN NEGATIVE (NEGATIVE); URINE CASTS 1 /lpf (0-8); URINE COLOR YELLOW; URINE GLUCOSE (UA) NEGATIVE (NEGATIVE); URINE KETONE NEGATIVE (NEGATIVE); URINE LEUK ESTERASE TRACE (NEGATIVE); URINE NITRITE NEGATIVE (NEGATIVE); URINE PROTEIN NEGATIVE (NEGATIVE); URINE RBC 1 /hpf (0-4); URINE UROBILINOGEN 0.2 mg/dL (0.2-1.0); URINE WBC 2 /hpf (0-5)
[2018-07-10 17:20] LABS: INR 1.05 (0.83-1.09); PROTHROMBIN TIME (PATIENT) 12.4 SEC (9.7-13.0)
--- NOTE | 2018-07-10 17:32 | PDOC ---
*Physical Exam - Vital Signs Last Vital Signs Temp Pulse Resp BP Pulse Ox 98.2 F 74 16 96/58 L 99 07/10/18 15:16 07/10/18 15:16 07/10/18 15:16 07/10/18 15:16 07/10/18 16:55 ED Treatment Course - LABORATORY CBC & Chemistry Diagram: 07/10/18 16:28 07/10/18 16:40 - ADDITIONAL ORDERS Additional order review: Laboratory Results 07/10/18 07/10/18 16:28 16:28 PT with INR 12.40 INR 1.05 Urine Color Yellow Urine Appearance Clear Urine pH >= 9.0 H D Ur Specific [place] 1.011 Urine Protein Negative Urine Glucose (UA) Negative Urine Ketones Negative Urine Blood Negative Urine Nitrite Negative Urine Bilirubin Negative Urine Urobilinogen 0.2 Ur Leukocyte Esterase Trace Urine WBC (Auto) 2 Urine RBC (Auto) 1 Urine Casts (Auto) 1 U Epithel Cells (Auto) 2.7 Urine Bacteria (Auto) 27.1 Urine HCG, Qual Positive 07/10/18 16:28 RBC 4.36 MCV 90.1 MCHC 33.4 RDW 12.1 MPV 8.0 Neutrophils % 55.6 D Lymphocytes % 35.5 D Monocytes % 7.7 Eosinophils % 0.5 Basophils % 0.7 - Medications Given in the ED: ED Medications Discontinued Medications Generic Name Dose Route Start Last Admin Trade Name Freq PRN Reason Stop Dose Admin Acetaminophen 1,000 mg 07/10/18 16:32 07/10/18 16:54 Ofirmev Injection - IVPB 07/10/18 16:33 1,000 mg ONCE ONE Administration Sodium Chloride 500 mls @ 500 mls/hr 07/10/18 15:17 07/10/18 17:16 Normal Saline - IV 07/10/18 16:16 Not Given ASDIR STA Sodium Chloride 1,000 mls @ 1,000 mls/hr 07/10/18 16:32 07/10/18 16:48 Normal Saline - IV 07/10/18 17:31 1,000 mls/hr ASDIR STA Administration Metoclopramide HCl 10 mg 07/10/18 16:32 07/10/18 16:54 Reglan Injection - IVPB 07/10/18 16:33 10 mg ONCE ONE Administration Medical Decision Making - Medical Decision Making 07/10/18 17:32 Pt seen by Midlevel Provider under my direct supervision Ancillary studies reviewed I agree with plan as outlined by Midlevel Provider *DC/Admit/Observation/Transfer Diagnosis at time of Disposition: Vaginal bleeding in , Blighted ovum - Discharge Dispostion Disposition: HOME Condition at time of disposition: Stable - Referrals Referrals: Conrad Smith MD [Primary Care Provider] - - Patient Instructions Printed Discharge Instructions: Miscarriage Additional Instructions: It appears that you have a blighted ovum which is a type of early miscarriage where a fertilized egg does not develop into an embryo It is normal to have some abdominal cramping and vaginal bleed during this time. You can take tylenol for pain as needed Please follow up with your OB this week - Post Discharge Activity
[2018-07-10 18:40] VITALS: BP 105/62; PULSE 71; TEMP 98
[2018-07-10 18:43] LABS: ALBUMIN 4.2 g/dl (3.4-5.0); BILIRUBIN,TOTAL 0.8 mg/dL (0.2-1); CALCIUM 9.2 mg/dL (8.5-10.1); CREATININE 0.5 mg/dL (0.55-1.3); TOT PROT 7.4 g/dl (6.4-8.2)
== END 2018-07-10 18:50 | disposition home or self-care (01) ==
LOC: JER 15:15
PROC: 3E033NZ Introduction of Analgesics, Hypnotics, Sedatives into Peripheral Vein, Percutaneous Approach (ICD-10-PCS; principal; 2018-07-10)
PROC: 3E033GC Introduction of Other Therapeutic Substance into Peripheral Vein, Percutaneous Approach (ICD-10-PCS; 2018-07-10)
PROC: 3E0337Z Introduction of Electrolytic and Water Balance Substance into Peripheral Vein, Percutaneous Approach (ICD-10-PCS; 2018-07-10)
DX: O26.892 Other specified pregnancy related conditions, second trimester (principal); Z3A.16 16 weeks gestation of pregnancy; O02.0 Blighted ovum and nonhydatidiform mole; N93.9 Abnormal uterine and vaginal bleeding, unspecified
CPT/HCPCS: 36415; 76817-TC; 80053; 81003; 84702; 84703; 85025; 85610; 86850; 86900; 86901; 99284-25; J0131; J7030

== ENCOUNTER 2018-07-15 15:05 | Emergency (ER) | payer OTHER ==
[2018-07-15 15:26] VITALS: BMI 17.7
--- NOTE | 2018-07-15 17:34 | PDOC ---
*Physical Exam - Vital Signs Last Vital Signs Temp Pulse Resp BP Pulse Ox 98.4 F 86 22 H 100/67 98 07/15/18 15:25 07/15/18 15:25 07/15/18 15:25 07/15/18 15:25 07/15/18 15:25 *DC/Admit/Observation/Transfer Diagnosis at time of Disposition: Eloped from emergency department - Discharge Dispostion Disposition: ELOPED - Referrals Referrals: Marquise Gamino [Primary Care Provider] - - Patient Instructions - Post Discharge Activity
[2018-07-15] MEDS ORDERED: MORPHINE SULFATE 2 MG/ML VIAL IVPUSH ONE ×2 (18:36→19:54)
[2018-07-15] MEDS ORDERED: SODIUM CHLORIDE 1,000 ML IV STA (18:38)
[2018-07-15] MEDS ORDERED: MORPHINE SULFATE 2 MG/ML VIAL ONE (18:40)
--- NOTE | 2018-07-15 18:51 | PDOC ---
History of Present Illness - General Chief Complaint: Pain, Acute Stated Complaint: ABD PAIN Time Seen by Provider: 07/15/18 16:22 History Source: Patient Exam Limitations: No Limitations - History of Present Illness Initial Comments: 07/15/18 18:46 22 yo female pmh gastritis, irregular periods, (2 elective abortions) currently 9-10 weeks with current miscarriage presents to the ED with 4 days of abdominal pain and bloody pads. [facility] to terminate preg since but complains of persistent and worsening abdominal cramping. Pt seen in the ED, notable for: Beta 07/10 89008 US read as irreg ges sac ~6 weeks c/w probable anembryonic /blighted ovum, no def embryonic pole/yolk sac seen No sig vaginal bleeding Pt appears uncomfortable, swaying in bed with diffuse abdominal tenderness. Denies N/V/F/C, back pain, CP, SOB Past History - Past Medical History Allergies/Adverse Reactions: Allergies Allergy/AdvReac Type Severity Reaction Status Date / Time No Known Drug Allergies Allergy Verified 07/15/18 15:22 TURKEY Allergy Intermediate Hives Uncoded 07/15/18 15:22 Home Medications: Ambulatory Orders NK [No Known Home Medication] 07/15/18 Anemia: Yes Asthma: No Cancer: No Cardiac Disorders: No COPD: No Diabetes: No Disorders: Yes (uti's) HTN: No Seizures: No Thyroid Disease: No - Reproductive History (#): 2 Para: 1 Cervical CA: No Dysfunctional Uterine Bleeding: No Ectopic : No Endometrial CA: No Polycystic Ovaries: No Therapeutic (s) & number: Yes (2) Tubal Ligation: No - Immunization History Immunization Up to Date: Yes - Suicide/Smoking/Psychosocial Hx Smoking Status: No Smoking History: Unknown if ever smoked Have you smoked in the past 12 months: Yes Number of Cigarettes Smoked Daily: 2 'Breaking Loose' booklet given: 03/01/14 Hx Alcohol Use: No Drug/Substance Use Hx: No Substance Use Type: None Hx Substance Use Treatment: No Review of Systems - Review of Systems Constitutional: No: Chills, Fever Respiratory: No: Shortness of Breath Cardiac (ROS): No: Chest Pain, Edema, Palpitations ABD/GI: Yes: Abdominal cramping (diffuse). No: Abdominal Distended, Constipated , Diarrhea, Nausea, Vomiting : No: Burning, Dysuria, Discharge, Frequency, Flank Pain Musculoskeletal: No: Back Pain Integumentary: No: Rash Neurological: No: Weakness *Physical Exam - Vital Signs Last Vital Signs Temp Pulse Resp BP Pulse Ox 98.4 F 86 22 H 100/67 98 07/15/18 15:25 07/15/18 15:25 07/15/18 15:25 07/15/18 15:25 07/15/18 15:25 - Physical Exam General Appearance: Yes: Nourished, Appropriately Dressed, Apparent Distress ( pt swaying in pain ) HEENT: positive: EOMI Neck: positive: Supple. negative: Rigid Respiratory/Chest: positive: Lungs Clear, Normal Breath Sounds, Rapid RR (due to pain). negative: Accessory Muscle Use, Crackles, Rales, Rhonchi, Stridor, Wheezing Cardiovascular: positive: Regular Rhythm, Regular Rate, S1, S2. negative: Edema , JVD, Murmur Vascular Pulses: Dorsalis-Pedis (R): 4+, Doralis-Pedis (L): 4+ Gastrointestinal/Abdominal: positive: Normal Bowel Sounds, Flat, Soft, Tenderness (diffuse but distractable ). negative: Pulsatile Mass, Distended, Guarding, Rebound Extremity: positive: Normal Capillary Refill, Normal Inspection, Normal Range of Motion Integumentary: positive: Normal Color, Dry, Warm Neurologic: positive: Fully Oriented, Alert, Normal Mood/Affect, Normal Response ED Treatment Course - LABORATORY CBC & Chemistry Diagram: 07/15/18 19:00 07/15/18 19:00 - RADIOLOGY Radiology Studies Ordered: Category Date Time Status TRANSVAGINAL US PREG [US] Stat Ultrasound 07/15/18 18:35 Ordered Medical Decision Making - Medical Decision Making 07/15/18 19:02 22 yo female pmh gastritis, irregular periods, (2 elective abortions) currently 9-10 weeks with current miscarriage presents to the ED with 4 days of abdominal pain and bloody pads. Pts OB at Dr. Everardo merino medically treated to terminate preg since but complains of persistent and worsening abdominal cramping. Pt seen in the ED, notable for: Beta 07/10 80507 US read as irreg ges sac ~6 weeks c/w probable anembryonic /blighted ovum, no def embryonic pole/yolk sac seen No sig vaginal bleeding Pt appears uncomfortable, swaying in bed with diffuse abdominal tenderness. Denies N/V/F/C, back pain, CP, SOB Pt treated with Misoprostol, taken treated with morphine with minimal relief of pain Pt give high dose Motrin and percocet with moderate pain relief Will do TVUS, labs to repeat beta and treat pain with 2mg morphine then reassess vitals wnl vaginal exam discussed with pt, agrees no further utility in performing exam due to US findings TVUS shows complete , no retained products of conception Beta from 07/10 37164, today 7000s Pt has f/u appointment 07/18 with GALLERY OR MUSEUM TECHNICIAN, all labs and US report printed. Pt agrees to go to her appointment with all documents and given strict return precautions *DC/Admit/Observation/Transfer Diagnosis at time of Disposition: Complete , Abdominal cramping - Discharge Dispostion Disposition: HOME Condition at time of disposition: Stable Decision to Admit order: No - Referrals Referrals: Marquise Gamino [Primary Care Provider] - Anna Stockton CNM [Certified Nurse Director Safety] - - Patient Instructions Printed Discharge Instructions: DI for Miscarriage, DI for Therapeutic : Medical Additional Instructions: Please see your OB Doctor within the next 48 hours and make sure to bring copies of the blood work and ultrasound given to you today. Take over the counter Motrin as needed for pain as directed on the packaging. Return to the ER for new or concerning symptoms including but not limited to: excessive abdominal pain, high fevers, inability to eat or drink. Thank you - Post Discharge Activity
[2018-07-15 19:07] LABS: BASO % 0.4 % (0-2.0); EOS % 0.4 % (0-4.5); HEMATOCRIT 39.4 % (32.4-45.2); HEMOGLOBIN 13.2 GM/dL (10.7-15.3); LYMPH % 20.2 % (8-40); MCH 30.2 pg (25.7-33.7); MCHC 33.6 g/dl (32.0-36.0); MEAN CELL VOLUME 89.9 fl (80-96); MEAN PLT VOLUME 7.9 fl (7.5-11.1); MONO % 5.3 % (3.8-10.2); NEUT % 73.7 % (42.8-82.8); PLATELET COUNT 184 K/MM3 (134-434); RBC 4.39 M/mm3 (3.60-5.2); RDW 12.5 % (11.6-15.6); WHITE BLOOD COUNT 7.8 K/mm3 (4.0-10.0)
[2018-07-15 19:23] LABS: INR 0.99 (0.83-1.09); PROTHROMBIN TIME (PATIENT) 11.7 SEC (9.7-13.0)
[2018-07-15 19:26] LABS: ACTIVATED PTT 36.2 SECONDS (25.2-36.5)
[2018-07-15 20:02] LABS: ALBUMIN 4.2 g/dl (3.4-5.0); BILIRUBIN,TOTAL 0.4 mg/dL (0.2-1); CALCIUM 9.2 mg/dL (8.5-10.1); CREATININE 0.5 mg/dL (0.55-1.3); POTASSIUM 4.2 mmol/L (3.5-5.1); TOT PROT 7.6 g/dl (6.4-8.2)
[2018-07-15] MEDS ORDERED: IBUPROFEN 400 MG TABLET (FP) PO ONE ×2 (20:29→20:42)
[2018-07-15 20:38] VITALS: BP 103/67; PULSE 80; TEMP 98.3
--- NOTE | 2018-07-15 20:54 | PDOC ---
Documentation entered by Kelly Rider SCRIBE, acting as scribe for Rachel Lambert MD. Rachel Lambert MD: This documentation has been prepared by the Tereso quispe Daisy, SCRIBE, under my direction and personally reviewed by me in its entirety. I confirm that the documentation accurately reflects all work, treatment, procedures, and medical decision making performed by me. Attending Attestation - Resident Resident Name: Luther Jimenez - ED Attending Attestation I have performed the following: I have examined & evaluated the patient, The case was reviewed & discussed with the resident, I agree w/resident's findings & plan - HPI HPI: 07/15/18 19:05 22 yo female was and went to [address] [place] [address] on 07/10/18 and had a pelvic US that showed nonviable preg-(blighted ovum)no pole, irregular sac and bhcg greater thatn 32,000: She states she was given 4 pills to terminate the on but has increasing pelvic cramping since then 07/15/18 19:45 - Physicial Exam PE: 07/15/18 19:11 thin 22 yo female with severe pelvic cramping and some vaginal bleeding head ncat neck supple lungs cta b/l cvs [id number] abd flat, no rebound severe pelvic pain skin warm and dry no cva tenderness neuro axox3,ambulatory psych anxious - Medical Decision Making 07/15/18 19:14 diff diag : concern for retained products plan [id number] bhcg, pelvic US 07/15/18 20:49 RESULTS there are no retained products, there is sl thickened endometrium , no adnexal masses,no free fluid -[place] bhcg [place] 45511 to 7000 miscarriage in progress plan followup with mosaic worker at [address] [place] [address] this when she has an appt
== END 2018-07-15 21:06 | disposition home or self-care (01) ==
LOC: JER 15:05
PROC: 3E033NZ Introduction of Analgesics, Hypnotics, Sedatives into Peripheral Vein, Percutaneous Approach (ICD-10-PCS; principal; 2018-07-15)
DX: O03.6 Delayed or excessive hemorrhage following complete or unspecified spontaneous abortion (principal)
CPT/HCPCS: 36415; 76817-TC; 80053; 84702; 85025; 85610; 85730; 86850; 86900; 86901; 96374; 99283-25; J7030

== ENCOUNTER 2018-07-17 01:31 | Emergency (ER) | payer OTHER ==
[2018-07-17] MEDS ORDERED: SODIUM CHLORIDE 0.9% 500 ML INFUS.BAG IV ONE (02:04)
[2018-07-17] MEDS ORDERED: ACETAMINOPHEN 1000 MG/100 ML VIAL (NON FORMULARY) IVPB ONE (02:04)
--- NOTE | 2018-07-17 02:18 | PDOC ---
History of Present Illness - General Stated Complaint: PAIN,ABD/BACK, VAGINAL BLEEDING Time Seen by Provider: 07/17/18 02:02 - History of Present Illness Initial Comments: 07/17/18 03:39 The patient is a 22 year old female who presents with abdominal cramping and vaginal bleeding. States she had miscarriage last week for which her ivf embryologist prescribed Misoprostol. Patient took two pills on and had intermittent cramping and bleeding (w/passage of clots). Evaluated in our ED two days previous for her pain at which time TVUS showed no retained POC. Returns to our ED this morning as she continues to bleed and has passed five clots today. Denies chest pain, shortness of breath, fevers/chills, nausea/vomiting, diarrhea /constipation. As per EMR patient evaluated in our ED on 07/15 for abdominal cramping, vaginal bleed. TVUS showed no retained POC. Multiple attempts at analgesia and patient discharged home with ivf embryologist follow-up for Beta Quant trend. Past History - Past Medical History Allergies/Adverse Reactions: Allergies Allergy/AdvReac Type Severity Reaction Status Date / Time No Known Drug Allergies Allergy Verified 07/17/18 02:12 TURKEY Allergy Intermediate Hives Uncoded 07/17/18 02:12 Home Medications: Ambulatory Orders NK [No Known Home Medication] 07/15/18 Anemia: Yes Asthma: No Cancer: No Cardiac Disorders: No COPD: No Diabetes: No Disorders: Yes (uti's) HTN: No Seizures: No Thyroid Disease: No - Reproductive History (#): 2 Para: 1 Cervical CA: No Dysfunctional Uterine Bleeding: No Ectopic : No Endometrial CA: No Polycystic Ovaries: No Therapeutic (s) & number: Yes (2) Tubal Ligation: No Spontaneous : 2 - Immunization History Immunization Up to Date: Yes - Suicide/Smoking/Psychosocial Hx Smoking Status: No Smoking History: Unknown if ever smoked Have you smoked in the past 12 months: Yes Number of Cigarettes Smoked Daily: 2 'Breaking Loose' booklet given: 03/01/14 Hx Alcohol Use: No Drug/Substance Use Hx: No Substance Use Type: None Hx Substance Use Treatment: No Review of Systems - Review of Systems Constitutional: No: Fever HEENTM: No: Blurred Vision, Recent change in vision Respiratory: No: Cough, Shortness of Breath Cardiac (ROS): No: Chest Pain, Lightheadedness, Palpitations ABD/GI: Yes: Abdominal cramping. No: Constipated, Diarrhea, Nausea, Vomiting *Physical Exam - Physical Exam Comments: 07/17/18 03:52 Awake, alert, thin, anxious Abdomen: soft, mild TTP CV: S1, S2, no M/R/G Pelvic exam shows active vaginal bleed from cervix, os not visualized 2/2 to blood. Clot passage while in ED> Respiratory: CLTA B/L, no wheeze/crackle ED Treatment Course - LABORATORY CBC & Chemistry Diagram: 07/17/18 02:55 07/17/18 02:55 Medical Decision Making - Medical Decision Making 07/17/18 04:01 22 year old female s/p pill with abdominal cramping and vaginal bleeding Hb stable @ 12 Beta 5798 (< 7424 on 07/15) - trending downward suggestive of completed AB Will discharge home with close OB follow up for further evaluation. *DC/Admit/Observation/Transfer Diagnosis at time of Disposition: Vaginal bleeding - Discharge Dispostion Disposition: HOME Condition at time of disposition: Good Decision to Admit order: No - Referrals Referrals: Marquise Gamino [Primary Care Provider] - Anna Stockton CNM [Certified Nurse Imaging Specialist] - - Patient Instructions Additional Instructions: You must follow up with your ivf embryologist in the next 24 hours. Your care is not complete until you are evaluated by your OB-Clinical Administrative Coordinator. You can take Motrin every 4-6 hours (up to 3200 mg daily) for your pain. Return to the Emergency Department for any new/worsening/concerning symptoms. - Post Discharge Activity
[2018-07-17 02:30] VITALS: BP 103/60; PULSE 83; TEMP 98.3; BMI 17.9
[2018-07-17] MEDS ORDERED: ACETAMINOPHEN INJECTION 100 ML IVPB ONE (02:55)
[2018-07-17 03:00] LABS: BASO % 0.4 % (0-2.0); EOS % 0.6 % (0-4.5); HEMATOCRIT 35.8 % (32.4-45.2); HEMOGLOBIN 12.2 GM/dL (10.7-15.3); LYMPH % 19.9 % (8-40); MCH 30.8 pg (25.7-33.7); MEAN CELL VOLUME 90.6 fl (80-96); MEAN PLT VOLUME 7.8 fl (7.5-11.1); NEUT % 74.1 % (42.8-82.8); PLATELET COUNT 176 K/MM3 (134-434); RBC 3.95 M/mm3 (3.60-5.2); RDW 12.4 % (11.6-15.6); WHITE BLOOD COUNT 6.3 K/mm3 (4.0-10.0)
[2018-07-17 03:23] LABS: ALBUMIN 3.9 g/dl (3.4-5.0); BILIRUBIN,TOTAL 0.3 mg/dL (0.2-1); CALCIUM 8.7 mg/dL (8.5-10.1); CREATININE 0.5 mg/dL (0.55-1.3)
--- NOTE | 2018-07-17 04:56 | PDOC ---
Documentation entered by Janak Moreno SCRIBE, acting as scribe for Niurka Hagen DO. Niurka Hagen DO: This documentation has been prepared by the Tiffanie quispe Matthew, SCRIBE, under my direction and personally reviewed by me in its entirety. I confirm that the documentation accurately reflects all work, treatment, procedures, and medical decision making performed by me. Attending Attestation - Resident Resident Name: SanketAngelina - ED Attending Attestation I have performed the following: I have examined & evaluated the patient, The case was reviewed & discussed with the resident, I agree w/resident's findings & plan - HPI HPI: 07/17/18 03:23 Patient is a 22 year old female, with a significant past medical history of Anemia, who presents to the ED with complaints of abdominal pain that began x5 days ago. Patient reports experiencing abdominal pain that she states has gradually increased in intensity over time as well as associated vaginal bleeding. She reports having a miscarriage sunday afternoon. Patient reports coming into the ED for further evaluation after abdominal pain and bleeding did not subside over time. Denies chest pain, sob. Denies nausea, vomiting. Denies contact with sick individuals, out of state travelling. Denies dysuria, hematuria. Denies constipation, diarrhea. Denies any other symptoms. Allergies: NKDA. Social history: No smoking, No alcohol. No illicit drugs. Surgical history: None PMD: Dr. Gamino - Physicial Exam PE: 07/17/18 03:23 Agree with residents Physical Exam. 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
== END 2018-07-17 04:42 | disposition home or self-care (01) ==
LOC: JER 01:31
PROC: 3E033NZ Introduction of Analgesics, Hypnotics, Sedatives into Peripheral Vein, Percutaneous Approach (ICD-10-PCS; principal; 2018-07-17)
PROC: 3E0337Z Introduction of Electrolytic and Water Balance Substance into Peripheral Vein, Percutaneous Approach (ICD-10-PCS; 2018-07-17)
DX: N93.9 Abnormal uterine and vaginal bleeding, unspecified (principal)
CPT/HCPCS: 36415; 80053; 84702; 85025; 86850; 86900; 86901; 96374; 99283-25; J0131

== ENCOUNTER 2018-09-13 19:06 | Emergency (ER) | payer OTHER ==
[2018-09-13 19:31] VITALS: BP 101/42; PULSE 98; TEMP 98.5; BMI 15.6
--- NOTE | 2018-09-13 20:20 | PDOC ---
History of Present Illness - General Chief Complaint: Cold Symptoms Stated Complaint: NAUSEA/HEADACHE Time Seen by Provider: 09/13/18 20:00 History Source: Patient - History of Present Illness Initial Comments: 09/13/18 20:15 Chief complaint: Nasal congestion and cough Patient 22-year-old female states she had a miscarriage in July, came into the ER today with cough and congestion for 1 day, no shortness of breath, no fever. Patient also complaining of congestion. Patient states that she did a test at home earlier this week and also had one at the doctor's office 2 days ago that showed positive. Patient is requesting quantitative hCG so that we can tell her whether she can take Benadryl or not, whether this is from her old or this is a new although her regular doctor told her this was a new . Patient does not appear to be in any distress. GENERAL/CONSTITUTIONAL: No fever, weakness. dizziness HEAD, EYES, EARS, NOSE AND THROAT: No change in vision. No ear pain or discharge. No sore throat. + Nasal congestion CARDIOVASCULAR: No chest pain RESPIRATORY: No shortness of breath, +cough GASTROINTESTINAL: No pain, nausea, vomiting, diarrhea or constipation GENITOURINARY: No dysuria MUSCULOSKELETAL: No neck or back pain SKIN: No rash NEUROLOGIC: No headache, vertigo, loss of consciousness, or loss of sensation. GENERAL: The patient is awake, alert, and fully oriented, in no acute distress. HEAD: Normal with no signs of trauma. EYES: Pupils equal, round and reactive to light, sclera anicteric, conjunctiva clear. ENT: + Nasal congestion, normal speech NECK: supple CHEST: no Respiratory distress EXTREMITIES: Normal range of motion, no edema. NEUROLOGICAL: Normal speech, normal gait. SKIN: Warm, Dry Past History - Past Medical History Allergies/Adverse Reactions: Allergies Allergy/AdvReac Type Severity Reaction Status Date / Time No Known Drug Allergies Allergy Verified 07/17/18 02:12 TURKEY Allergy Intermediate Hives Uncoded 07/17/18 02:12 Home Medications: Ambulatory Orders NK [No Known Home Medication] 07/15/18 Anemia: Yes Asthma: No Cancer: No Cardiac Disorders: No COPD: No Diabetes: No Disorders: Yes (uti's) HTN: No Seizures: No Thyroid Disease: No - Reproductive History (#): 2 Para: 1 Cervical CA: No Dysfunctional Uterine Bleeding: No Ectopic : No Endometrial CA: No Polycystic Ovaries: No Therapeutic (s) & number: Yes (2) Tubal Ligation: No Spontaneous : 2 - Immunization History Immunization Up to Date: Yes - Suicide/Smoking/Psychosocial Hx Smoking Status: No Smoking History: Former smoker Have you smoked in the past 12 months: No Number of Cigarettes Smoked Daily: 2 If you are a former smoker, when did you quit?: 5 months Information on smoking cessation initiated: No 'Breaking Loose' booklet given: 03/01/14 Hx Alcohol Use: No Drug/Substance Use Hx: No Substance Use Type: None Hx Substance Use Treatment: No *Physical Exam - Vital Signs Last Vital Signs Temp Pulse Resp BP Pulse Ox 98.5 F 98 H 19 101/42 L 97 09/13/18 19:27 09/13/18 19:27 09/13/18 19:27 09/13/18 19:27 09/13/18 19:27 Medical Decision Making - Medical Decision Making 09/13/18 20:18 The 22-year-old female who was recently told that she was , 2 days ago in a doctor's office after having a acid test at home. Patient is requesting a quantitative hCG in hopes of figuring out if this is an old or new see if she can take Benadryl for her nasal congestion.. Explained to patient that this would not be an evaluation to help determine if she can take medication. That even if we did of a beta hCG which is not indicated we would not recommend that she take any medication because that would not and firm that this is not a new even if this is a lower level than her last level in July. At this point patient got annoyed, got up and cursed in Ugandan. Attempted to explain patient that I would gladly examine her and see if I could recommend any remedies for her and patient just looked at her friend and said something in Ugandan and walked out. Patient is not in any distress and had not complained any related complaints. *DC/Admit/Observation/Transfer Diagnosis at time of Disposition: Upper respiratory symptom - Discharge Dispostion Disposition: ELOPED Condition at time of disposition: Stable - Referrals - Patient Instructions - Post Discharge Activity
== END 2018-09-13 20:10 | disposition left against medical advice (07) ==
LOC: JERFT 19:06
DX: R09.89 Other specified symptoms and signs involving the circulatory and respiratory systems (principal)
CPT/HCPCS: 99281-25

== ENCOUNTER 2018-09-24 09:57 | Day surgery (SDC) | payer OTHER ==
[2018-09-23 09:46] VITALS: BMI 16.9
[2018-09-24 10:33] LABS: EOS % 1.5 % (0-4.5); HEMATOCRIT 37.9 % (32.4-45.2); HEMOGLOBIN 12.9 GM/dL (10.7-15.3); LYMPH % 42.4 % (8-40); MCH 30.7 pg (25.7-33.7); MEAN CELL VOLUME 90.5 fl (80-96); MEAN PLT VOLUME 7.6 fl (7.5-11.1); MONO % 7.7 % (3.8-10.2); NEUT % 47.4 % (42.8-82.8); PLATELET COUNT 214 K/MM3 (134-434); RBC 4.18 M/mm3 (3.60-5.2); RDW 11.8 % (11.6-15.6); WHITE BLOOD COUNT 3.5 K/mm3 (4.0-10.0)
[2018-09-24 11:10] LABS: ALBUMIN 3.8 g/dl (3.4-5.0); BILIRUBIN,TOTAL 0.6 mg/dL (0.2-1); BLOOD UREA NITROGEN 12.7 mg/dL (7-18); CALCIUM 8.8 mg/dL (8.5-10.1); CREATININE 0.6 mg/dL (0.55-1.3)
[2018-09-24] MEDS ORDERED: PROPOFOL 20 ML ONE (12:04)
[2018-09-24] MEDS ORDERED: LIDOCAINE HCL/PF 2% SDV 5ML VIAL ONE (12:04)
[2018-09-24] MEDS ORDERED: MIDAZOLAM HCL 2 MG/2 ML SINGLE DOSE VIAL ONE (12:04)
[2018-09-24] MEDS ORDERED: KETOROLAC TROMETHAMINE 30 MG/1 ML VIAL ONE (12:04)
[2018-09-24] MEDS ORDERED: ONDANSETRON 4 MG/2 ML VIAL IVPUSH PRN (12:26)
[2018-09-24] MEDS ORDERED: oxyCODONE HCL 5 MG TABLET PO PRN (12:26)
--- NOTE | 2018-09-24 12:27 | HP ---
History & Physical Update - History History: No Change - Physical Physical: No Change - Assessment Assessment: No Change - Plan Plan: No Change (retained POC, for suction D&C, informed consent obtained)
[2018-09-24] MEDS ORDERED: ACETAMINOPHEN 325 MG TABLET (FP) PO PRN (12:28)
[2018-09-24] MEDS ORDERED: CEFAZOLIN 1 GM/D5W 1 GM/50 ML BAG IVPB ONE (12:28)
[2018-09-24] MEDS ORDERED: IBUPROFEN 600 MG TABLET (FP) PO PRN (12:28)
[2018-09-24] MEDS ORDERED: LACTATED RINGERS SOLUTION 1,000 ML IV SCH ×2 (12:30)
[2018-09-24] MEDS ORDERED: ceFAZolin SODIUM 1 GM VIAL IVPB ONE (12:35)
[2018-09-24] MEDS ORDERED: ceFAZolin SODIUM 1 GM VIAL ONE (12:40)
[2018-09-24 14:11] VITALS: TEMP 98
[2018-09-24 15:57] VITALS: BP 96/56; PULSE 68
--- NOTE | 2018-09-25 08:18 | OP ---
Operative Note - Note: Operative Date: 09/24/18 Pre-Operative Diagnosis: retained products of conception Post-Operative Diagnosis: Same as Pre-op Anesthesia: MAC Estimated Blood Loss (mls): 5 Operative Report Dictated: Yes
--- NOTE | 2018-09-25 09:05 | OP ---
DATE OF OPERATION: 09/24/2018 PREOPERATIVE DIAGNOSIS: Retained products of conception. POSTOPERATIVE DIAGNOSIS: Retained products of conception. PROCEDURE PERFORMED: Suction dilatation and curettage. SURGEON: Vidhya Birmingham DO ANESTHESIA: MAC. ANESTHESIOLOGIST: Kendal Garcia MD ESTIMATED BLOOD LOSS: 5 mL. COMPLICATIONS: None. SPECIMENS REMOVED: Products of conception. COUNTS: Sponge and instrument count correct. DISPOSITION: Stable to PACU. INDICATIONS: The patient is a 22-year-old female who had been seen in the office after a medical termination and followed with what appeared to be retained products of conception. After failed medical management the patient elected to undergo a dilatation and curettage procedure. DESCRIPTION OF PROCEDURE: She signed consents for the procedure upon admission on September 24, 2018. She was then taken back to the operating room, given MAC anesthesia, and placed in the dorsal lithotomy position. A hard time-out was performed after she was prepped and draped in the normal sterile fashion. A speculum was placed inside the vagina. The cervix was easily identified and grasped with a tenaculum. Then the cervix was dilated to accommodate size 9 suction curette, which was advanced to the fundus of the uterus. Several passes of the suction curette were completed. Gentle curettage on all 4 akhtar with a sharp curette was completed until an adequate uterine cry was appreciated. One final pass with the suction was completed until all the tissue had been removed from the uterine cavity. Minimal bleeding was noted from the cervical os. Sponge and instrument count was reported to be correct. The patient was awoke from anesthesia, recovering in PACU in stable condition after the procedure. VIDHYA BIRMINGHAM DO /[id number]
--- NOTE | 2018-09-25 20:47 | PATH ---
Surgical Pathology Report Patient Name: SUSIE CAMPOVERDE Med. Rec. #: [id number] /Age/Gender: 1995 (Age: 22) / F Account: [id number] Location: [facility] Taken: 09/24/2018 Received: 09/24/2018 Reported: 09/25/2018 Physicians: Vidhya Birmingham M.D. Specimen(s) Received PRODUCTS OF CONCEPTION Clinical History Retained products of conception Final Diagnosis PRODUCTS OF CONCEPTION, SUCTION DILATION AND CURETTAGE: FOCALLY NECROTIC CHORIONIC VILLI AND DECIDUA CONSISTENT WITH PRODUCTS OF CONCEPTION. Electronically Signed Gilma Jimenez M.D. Gross Description Received in formalin labeled "products of conception," is a 2.8 x 2.5 x 0.3 cm aggregate of pink-rain soft tissue fragments. No definite villous tissue or somatic tissue is identified. The specimen is submitted in toto in one cassette. /09/24/2018 saudi09/24/2018
== END 2018-09-24 15:20 | disposition home or self-care (01) ==
LOC: JASU-SURG 09:57
PROVIDERS: ATTEND Obstetrics & Gynecology
PROC: 10D17ZZ Extraction of Products of Conception, Retained, Via Natural or Artificial Opening (ICD-10-PCS; principal; 2018-09-24 12:00)
DX: O73.1 Retained portions of placenta and membranes, without hemorrhage (principal)
CPT/HCPCS: 36415; 80053; 84702; 85025; 86850; 86900; 86901; 88305-TC; 94760

== ENCOUNTER 2019-01-16 15:20 | Emergency (ER) | payer OTHER ==
[2019-01-16 15:28] VITALS: BP 111/66; PULSE 85; TEMP 98; BMI 18.3
--- NOTE | 2019-01-16 15:29 | PDOC ---
Rapid Medical Evaluation Time Seen by Provider: 01/16/19 15:27 Medical Evaluation: Allergies Allergy/AdvReac Type Severity Reaction Status Date / Time lactose Allergy Intermediate Verified 09/23/18 09:47 No Known Drug Allergies Allergy Verified 07/17/18 02:12 TURKEY Allergy Intermediate Hives Uncoded 07/17/18 02:12 01/16/19 15:27 I have performed a brief in-person evaluation of this patient. The patient presents with a chief complaint of: , vomiting Pertinent physical exam findings:stable and in NAD, non-focal I have ordered the following:labs The patient will proceed to the ED for further evaluation.
[2019-01-16 16:44] LABS: BASO % 0.5 % (0-2.0); EOS % 0.4 % (0-4.5); HEMATOCRIT 34.1 % (32.4-45.2); HEMOGLOBIN 11.8 GM/dL (10.7-15.3); LYMPH % 22.7 % (8-40); MCH 30.8 pg (25.7-33.7); MCHC 34.5 g/dl (32.0-36.0); MEAN CELL VOLUME 89.3 fl (80-96); MEAN PLT VOLUME 7.9 fl (7.5-11.1); MONO % 6.3 % (3.8-10.2); NEUT % 70.1 % (42.8-82.8); PLATELET COUNT 201 K/MM3 (134-434); RBC 3.82 M/mm3 (3.60-5.2); RDW 13.2 % (11.6-15.6); WHITE BLOOD COUNT 5.9 K/mm3 (4.0-10.0)
[2019-01-16] MEDS ORDERED: SODIUM CHLORIDE 1,000 ML IV STA (16:53)
--- NOTE | 2019-01-16 17:10 | PDOC ---
History of Present Illness - General Chief Complaint: Nausea/Vomiting Stated Complaint: PCP SENT Time Seen by Provider: 01/16/19 15:27 History Source: Patient Exam Limitations: No Limitations - History of Present Illness Initial Comments: 01/16/19 16:54 HISTORY OF PRESENT ILLNESS: 23-year-old with a last menstrual period on 10/27/2018 who presents emergency department for evaluation of generalized weakness. 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 Patient reports having intermittent headaches. Patient is currently pain-free. She denies any abdominal pain or vaginal discharge/bleeding. She denies fever/chills. No recent travel or sick contacts. PAST MEDICAL HISTORY: Denies past medical history SURGICAL HISTORY: Denies ALLERGIES: No known drug allergies REVIEW OF SYSTEMS General/Constitutional: See HPI HEENT: Denies change in vision. Denies ear pain or discharge. Denies sore throat. Cardiovascular: Denies chest pain or shortness of breath. Respiratory: Denies cough, wheezing, or hemoptysis. Gastrointestinal: Denies nausea, vomiting, diarrhea or constipation. Denies rectal bleeding. Genitourinary: Denies dysuria, frequency, or change in urination. Musculoskeletal: Denies joint or muscle swelling or pain. Denies neck or back pain. Skin and breasts: Denies rash or easy bruising. Neurologic: Denies headache, vertigo, loss of consciousness, or loss of sensation. Psychiatric: Denies depression or anxiety. Endocrine: Denies increased thirst. Denies abnormal weight change. Hematologic/Lymphatic: Denies anemia, easy bleeding, or history of blood clots. Allergic/Immunologic: Denies hives or skin allergy. Denies latex allergy. PHYSICAL EXAM General Appearance: Well-appearing, appropriately dressed. No apparent distress , no intoxication. HEENT: EOMI, PERRLA, normal ENT inspection, normal voice, TMs normal, pharynx normal. No conjunctival pallor. No photophobia, scleral icterus. Moist mucous membranes. Neck: Supple. Trachea midline. No tenderness, rigidity, carotid bruit, stridor , lymphadenopathy, or thyromegaly. Respiratory/Chest: Lungs CTAB. No shortness of breath, chest tenderness, respiratory distress, accessory muscle use. No crackles, rales, rhonchi, stridor , wheezing, dullness Cardiovascular: RRR. S1, S2. No JVD, murmur, bradycardia, tachycardia. Vascular Pulses: Dorsalis-Pedis (R): 2+, Dorsalis-Pedis (L): 2+ Gastrointestinal/Abdominal: Normal bowel sounds. Abdomen soft, non-distended. No tenderness or rebound tenderness. No organomegaly, pulsatile mass, guarding, hernia, hepatomegaly, splenomegaly. Lymphatic: No adenopathy, tenderness. Musculoskeletal/Extremities: Normal inspection. FROM of all extremities, normal capillary refill. Pelvis Stable. No CVA tenderness. No tenderness to extremities, pedal edema, swelling, erythema or deformity. Integumentary: Appropriate color, dry, warm. 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 Fully oriented, alert. Appropriate mood/affect. Motor strength 5/5. No appreciable EOM palsy, facial droop or sensory deficit. 01/19/19 11:05 Past History - Past Medical History Allergies/Adverse Reactions: Allergies Allergy/AdvReac Type Severity Reaction Status Date / Time lactose Allergy Intermediate Verified 01/16/19 15:28 No Known Drug Allergies Allergy Verified 01/16/19 15:28 TURKEY Allergy Intermediate Hives Uncoded 01/16/19 15:28 Home Medications: Ambulatory Orders Cephalexin Monohydrate [Keflex -] 500 mg PO BID #14 capsule 01/16/19 Prenat 115/Iron Fum/Folic/Dss [ 19 Tablet] 1 tab PO DAILY 01/16/19 Anemia: Yes Asthma: No Cancer: No Cardiac Disorders: No CVA: No COPD: No CHF: No Dementia: No Diabetes: No GI Disorders: No Disorders: Yes (bacteria vaginosis, uti's) HTN: No Hypercholesterolemia: No Liver Disease: No Seizures: No Thyroid Disease: No - Surgical History Abdominal Surgery: No Appendectomy: No Cardiac Surgery: No Cholecystectomy: No Lung Surgery: No Neurologic Surgery: No - Reproductive History (#): 2 Para: 1 Cervical CA: No Dysfunctional Uterine Bleeding: No Ectopic : No Endometrial CA: No Polycystic Ovaries: No Therapeutic (s) & number: Yes (2) Tubal Ligation: No Spontaneous : 2 - Immunization History Immunization Up to Date: Yes - Psycho Social/Smoking Cessation Hx Smoking Status: No Smoking History: Never smoked Have you smoked in the past 12 months: No Number of Cigarettes Smoked Daily: 2 If you are a former smoker, when did you quit?: 5 months 'Breaking Loose' booklet given: 03/01/14 Hx Alcohol Use: No Drug/Substance Use Hx: No Substance Use Type: None Hx Substance Use Treatment: No *Physical Exam - Vital Signs Last Vital Signs Temp Pulse Resp BP Pulse Ox 98 F 85 18 111/66 98 01/16/19 15:22 01/16/19 15:22 01/16/19 15:22 01/16/19 15:22 01/16/19 15:22 ED Treatment Course - LABORATORY CBC & Chemistry Diagram: 01/16/19 16:20 01/16/19 16:20 - ADDITIONAL ORDERS Additional order review: 01/16/19 16:20 RBC 3.82 MCV 89.3 MCHC 34.5 RDW 13.2 MPV 7.9 Neutrophils % 70.1 Lymphocytes % 22.7 Monocytes % 6.3 Eosinophils % 0.4 Basophils % 0.5 Medical Decision Making - Medical Decision Making 01/16/19 17:10 A/P: 23-year-old woman with generalized weakness and first trimester Physical exam is unremarkable Basic labs Normal saline 1 L IV bolus Urinalysis, urine culture Reassess 01/16/19 18:43 Patient reports resolution of symptoms. Pt has tolerated PO's. UA notable for 1 + Leuk esterase and 14 WBC's on hpf. As patient is , I will treat for UTI as outpatient. I discussed the physical exam findings, ancillary test results and final diagnoses with the patient. I answered all of the patient's questions. The patient was satisfied with the care received and felt comfortable with the discharge plan and treatment plan. The patient will call their primary care physician within 24 hours to arrange follow-up and will return to the Emergency Department with any new, persistent or worsening symptoms. Discharge - Discharge Information Problems reviewed: Yes Clinical Impression/Diagnosis: UTI (urinary tract infection) Qualifiers: Urinary tract infection type: acute cystitis Hematuria presence: without hematuria Qualified Code(s): N30.00 - Acute cystitis without hematuria Condition: Stable Disposition: HOME - Admission No - Additional Discharge Information Prescriptions: Cephalexin Monohydrate [Keflex -] 500 mg PO BID #14 capsule - Follow up/Referral Referrals: Marquise Gamino [Primary Care Provider] - - Patient Discharge Instructions Additional Instructions: Rest, drink lots of fluids: Teas, water, soups Avoid contact with others until fevers and symptoms resolved Lots of handwashing and good hygiene Continue [id number] medications for symptomatic relief Tylenol for fever and pain Continue all of antibiotics until completed Followup with private physician in one week for repeat urinalysis/reevaluation Return to emergency department for worsened symptoms, fevers, dehydration - Post Discharge Activity Work/Back to School Note: Back to Work
[2019-01-16 17:12] LABS: CREATININE 0.5 mg/dL (0.55-1.3); POTASSIUM 3.8 mmol/L (3.5-5.1)
[2019-01-16 17:42] LABS: EPI CELLS 11.4 /HPF (0-5/HPF); HYALINE CASTS 5 /lpf (0-8); URINE APPEARANCE CLOUDY; URINE BACTERIA 318.5 /hpf (NEGATIVE); URINE BILIRUBIN NEGATIVE (NEGATIVE); URINE COLOR YELLOW; URINE GLUCOSE (UA) NEGATIVE (NEGATIVE); URINE KETONE TRACE (NEGATIVE); URINE LEUK ESTERASE 1+ (NEGATIVE); URINE NITRITE NEGATIVE (NEGATIVE); URINE PROTEIN NEGATIVE (NEGATIVE); URINE RBC 3 /hpf (0-4); URINE WBC 14 /hpf (0-5)
[2019-01-16] MEDS ORDERED: CEPHALEXIN MONOHYDRATE 500 MG CAPSULE (UD) PO ONE (18:46)
[2019-01-16] MEDS ORDERED: CEPHALEXIN MONOHYDRATE 500 MG CAPSULE (UD) ONE (18:48)
== END 2019-01-16 18:54 | disposition home or self-care (01) ==
LOC: JER 15:20
PROC: 3E0337Z Introduction of Electrolytic and Water Balance Substance into Peripheral Vein, Percutaneous Approach (ICD-10-PCS; principal; 2019-01-16)
DX: O26.891 Other specified pregnancy related conditions, first trimester (principal); O23.11 Infections of bladder in pregnancy, first trimester; B96.89 Other specified bacterial agents as the cause of diseases classified elsewhere; Z3A.00 Weeks of gestation of pregnancy not specified
CPT/HCPCS: 36415; 80048; 81003; 85025; 87086; 99284-25; J7030

== ENCOUNTER 2019-08-25 10:37 | Emergency (ER) | payer OTHER ==
[2019-08-25 10:50] VITALS: TEMP 98.6; BMI 20.6
--- NOTE | 2019-08-25 10:51 | PDOC ---
Rapid Medical Evaluation Time Seen by Provider: 08/25/19 10:43 Medical Evaluation: Allergies Allergy/AdvReac Type Severity Reaction Status Date / Time lactose Allergy Intermediate Verified 08/25/19 10:45 No Known Drug Allergies Allergy Verified 08/25/19 10:45 TURKEY Allergy Mild Hives Uncoded 08/25/19 10:45 08/25/19 10:45 CC: c/o chills. fever and pain/redness to csection site (05/2019) and has a headache along with sore throat , no meds taken since yesterday. states was on abx for infection at csection site but states area redness continues and has worsened Exam: vss, mild erythema to dry suture line Plan: urine and u/s Discharge Disposition - Diagnosis Redness of skin - Referrals - Patient Instructions - Post Discharge Activity
--- NOTE | 2019-08-25 13:47 | PDOC ---
History of Present Illness - General Chief Complaint: Cold Symptoms Stated Complaint: COLD LIKE SYMPTOMS Time Seen by Provider: 08/25/19 10:43 - History of Present Illness Initial Comments: 08/25/19 13:43 23-year-old female presents for evaluation of runny nose and sore throat x1 day no systemic symptoms, concerned about her scar from a section that was done in May and concern for Past History - Medical History Allergies/Adverse Reactions: Allergies Allergy/AdvReac Type Severity Reaction Status Date / Time lactose Allergy Intermediate Verified 08/25/19 10:45 No Known Drug Allergies Allergy Verified 08/25/19 10:45 TURKEY Allergy Mild Hives Uncoded 08/25/19 10:45 Home Medications: Ambulatory Orders Prenat 115/Iron Fum/Folic/Dss [ 19 Tablet] 1 tab PO DAILY 01/16/19 Anemia: Yes Asthma: No Cancer: No Cardiac Disorders: No CVA: No COPD: No CHF: No Dementia: No Diabetes: Yes (newly Dx Gest Diab) GI Disorders: No Disorders: Yes (bacteria vaginosis, uti's) HTN: No Hypercholesterolemia: No Liver Disease: No Seizures: No Thyroid Disease: No - Surgical History Abdominal Surgery: No Appendectomy: No Cardiac Surgery: No Cholecystectomy: No Lung Surgery: No Neurologic Surgery: No - Reproductive History (#): 2 Para: 1 Cervical CA: No Dysfunctional Uterine Bleeding: No Ectopic : No Endometrial CA: No Polycystic Ovaries: No Therapeutic (s) & number: Yes (2) Tubal Ligation: No Spontaneous : 2 - Immunization History Immunization Up to Date: Yes - Psycho-Social/Smoking History Smoking Status: No Smoking History: Never smoked Have you smoked in the past 12 months: No Number of Cigarettes Smoked Daily: 2 If you are a former smoker, when did you quit?: 5 months 'Breaking Loose' booklet given: 03/01/14 - Substance Abuse Hx (Audit-C & DAST Scrn) How often the patient has a drink containing alcohol: Never Score: In Men: 4 or > Positive; In Women: 3 or > Positive: 0 Screen Result (Pos requires Nsg. Audit-10AR): Negative In the last yr the pt used illegal drug/Rx for NonMed reason: No Score: Yes response is considered Positive: 0 Screen Result (Positive result requires Nsg. DAST-10): Negative Review of Systems - Review of Systems Constitutional: No: Chills, Fever, Night Sweats Respiratory: No: Cough, Shortness of Breath *Physical Exam - Vital Signs Last Vital Signs Temp Pulse Resp BP Pulse Ox 98.6 F 100 H 18 110/81 100 08/25/19 10:45 08/25/19 10:45 08/25/19 10:45 08/25/19 10:45 08/25/19 10:45 - Physical Exam 08/25/19 13:44 GENERAL: The patient is awake, alert, and fully oriented, in no acute distress. HEAD: Normal with no signs of trauma. EYES: sclera anicteric, conjunctiva clear. ENT: Ears normal tympanic membranes normal oropharynx clear uvula midline NECK: Normal range of motion LUNGS: Breath sounds equal, clear to auscultation bilaterally. No wheezes, and no crackles. HEART: S1 and S2 without murmur, rub or gallop. ABDOMEN: Soft, nontender, normoactive bowel sounds. No guarding, no rebound. No masses. EXTREMITIES: Normal range of motion, no edema. No clubbing or cyanosis. No cords, erythema, or tenderness. NEUROLOGICAL: Cranial nerves II through XII grossly intact. PSYCH: Normal mood, normal affect. SKIN: Warm, Dry, normal turgor, no rashes or lesions noted. Scar well-healed in the area of the lower abdomen mild erythema without induration sensitivity or fluctuance no drainage ED Treatment Course - ADDITIONAL ORDERS Additional order review: Laboratory Results 08/25/19 11:55 Urine HCG, Qual Negative Medical Decision Making - Medical Decision Making 08/25/19 13:44 Most likely either viral upper respiratory infection or seasonal allergies. Discussed social distancing isolation precautions should fever develop wearing a mask. most likely a Vicryl reaction. Will refer back to AUTOMAT[employer]HE SETTER. No infection today. Patient not . I have reviewed the pathophysiology with the patient. They are in agreement with the treatment plan all questions were answered to their satisfaction. Understanding for follow-up without fail was also conveyed to the patient. Again they are in agreement. 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 Your test results today was negative. Return to the emergency room for any further issues you may have. Continue social distancing wearing a mask and avoiding contact with others if you develop any symptoms such as fever chills or night sweats shortness of breath or cough. - Post Discharge Activity
[2019-08-25 13:55] VITALS: BP 114/77; PULSE 93
== END 2019-08-25 13:56 | disposition home or self-care (01) ==
LOC: JER 10:37
DX: L98.8 Other specified disorders of the skin and subcutaneous tissue (principal)
CPT/HCPCS: 84703; 99282-25

== ENCOUNTER 2019-10-14 13:15 | Emergency (ER) | payer OTHER ==
[2019-10-14 13:22] VITALS: BMI 20.6
[2019-10-14] MEDS ORDERED: SODIUM CHLORIDE 1,000 ML IV STA (13:28)
--- NOTE | 2019-10-14 13:28 | PDOC ---
Rapid Medical Evaluation Chief Complaint: Diarrhea Time Seen by Provider: 10/14/19 13:26 Medical Evaluation: Allergies Allergy/AdvReac Type Severity Reaction Status Date / Time lactose Allergy Intermediate Verified 10/14/19 13:17 No Known Drug Allergies Allergy Verified 10/14/19 13:17 vancomycin Allergy Verified 10/14/19 13:17 TURKEY Allergy Mild Hives Uncoded 10/14/19 13:17 Vital Signs Temp Pulse Resp BP Pulse Ox 98.1 F 74 18 121/65 100 10/14/19 13:17 10/14/19 13:17 10/14/19 13:17 10/14/19 13:17 10/14/19 13:17 10/14/19 13:26 I have performed a brief in-person evaluation of this patient. CC: headache x3 days now with diarrhea. Seen at [facility] at that time. PE: no focal findings Orders: labs, urine, IVF Patient to proceed to ED for further evaluation. Discharge Disposition - Diagnosis Diarrhea - Referrals - Patient Instructions - Post Discharge Activity
[2019-10-14] MEDS ORDERED: KETOROLAC TROMETHAMINE 30 MG/1 ML VIAL IVPUSH ONE (13:52)
[2019-10-14] MEDS ORDERED: METOCLOPRAMIDE HCL INJECTION 10 MG/2 ML VIAL IVPUSH ONE (13:52)
--- NOTE | 2019-10-14 14:02 | PDOC ---
History of Present Illness - General History Source: Patient Exam Limitations: No Limitations - History of Present Illness Initial Comments: 10/14/19 13:54 23 yo F , 2 terminations, 1 miscarriage, gestational diabetes, anemia, C- section 4 months ago at 29 weeks due to ruptured membranes, currently breast- feeding presents complaining of constant frontal headache x 4 days with nausea and light sensitivity. Reports approximately 15 episodes of non bloody diarrhea since yesterday with abdominal cramping. Denies fever, chills, shortness of breath, cough, back pain, urinary symptoms, vaginal bleeding, rash, sick contacts, recent travel. States she was evaluated at [facility] 2 days ago for SCOTT, given vancomycin for unknown reason which she developed a rash and was treated with iv benadryl. Headache feels much better today compared to vi sit 2 days ago at [facility]. Concerned about her diarrhea today. ROS: as above PE: GENERAL: well-appearing, NAD, thin HEAD: NCAT EYES: Pupils equal, round and reactive to light, sclera anicteric, conjunctiva clear ENT: pharynx: no erythema, no exudate, uvula midline NECK: supple CHEST: nontender RESP: clear, no w/r/r CARDIO: rrr, no m/g/r ABD: +BS, soft, nontender, non distended BACK: no midline spinal ttp, no CVAT EXTREMITIES: Normal range of motion, no edema NEUROLOGICAL: Normal speech, normal gait SKIN: Warm, Dry 10/14/19 17:23 Is this a multiple visit Asthma Patient?: No <Kayy Paz - Last Filed: 10/14/19 17:23> <Francis Dale - Last Filed: 10/14/19 17:36> - General Chief Complaint: Diarrhea Stated Complaint: ALTER MENTAL Time Seen by Provider: 10/14/19 13:26 Past History - Medical History Anemia: Yes Asthma: No Cancer: No Cardiac Disorders: No CVA: No COPD: No CHF: No Dementia: No Diabetes: Yes (newly Dx Gest Diab) GI Disorders: No Disorders: Yes (bacteria vaginosis, uti's) HTN: No Hypercholesterolemia: No Liver Disease: No Seizures: No Thyroid Disease: No - Surgical History Abdominal Surgery: No Appendectomy: No Cardiac Surgery: No Cholecystectomy: No Lung Surgery: No Neurologic Surgery: No - Reproductive History Is Patient Now?: No (#): 2 Para: 1 Cervical CA: No Dysfunctional Uterine Bleeding: No Ectopic : No Endometrial CA: No Polycystic Ovaries: No Therapeutic (s) & number: Yes (2) Tubal Ligation: No Spontaneous : 2 - Immunization History Immunization Up to Date: Yes - Psycho-Social/Smoking History Smoking Status: No Smoking History: Never smoked Have you smoked in the past 12 months: No Number of Cigarettes Smoked Daily: 2 If you are a former smoker, when did you quit?: 5 months 'Breaking Loose' booklet given: 03/01/14 - Substance Abuse Hx (Audit-C & DAST Scrn) How often the patient has a drink containing alcohol: Never Score: In Men: 4 or > Positive; In Women: 3 or > Positive: 0 Screen Result (Pos requires Nsg. Audit-10AR): Negative In the last yr the pt used illegal drug/Rx for NonMed reason: No Score: Yes response is considered Positive: 0 Screen Result (Positive result requires Nsg. DAST-10): Negative <Kayy Paz - Last Filed: 10/14/19 17:23> <Francis Dale - Last Filed: 10/14/19 17:36> - Medical History Allergies/Adverse Reactions: Allergies Allergy/AdvReac Type Severity Reaction Status Date / Time lactose Allergy Intermediate Verified 10/14/19 13:17 No Known Drug Allergies Allergy Verified 10/14/19 13:17 vancomycin Allergy Verified 10/14/19 13:17 TURKEY Allergy Mild Hives Uncoded 10/14/19 13:17 Home Medications: Ambulatory Orders Prenat 115/Iron Fum/Folic/Dss [ 19 Tablet] 1 tab PO DAILY 01/16/19 *Physical Exam - Vital Signs Last Vital Signs Temp Pulse Resp BP Pulse Ox 98.1 F 74 18 121/65 100 10/14/19 13:17 10/14/19 13:17 10/14/19 13:17 10/14/19 13:17 10/14/19 13:17 <Kayy Paz - Last Filed: 10/14/19 17:23> - Vital Signs Last Vital Signs Temp Pulse Resp BP Pulse Ox 98.1 F 68 18 118/62 100 10/14/19 17:31 10/14/19 17:31 10/14/19 17:31 10/14/19 17:31 10/14/19 13:17 <ChitoFrancis - Last Filed: 10/14/19 17:36> ED Treatment Course - LABORATORY CBC & Chemistry Diagram: 10/14/19 14:11 10/14/19 14:11 <Kayy Paz - Last Filed: 10/14/19 17:23> - LABORATORY CBC & Chemistry Diagram: 10/14/19 14:11 10/14/19 14:11 - ADDITIONAL ORDERS Additional order review: Laboratory Results 10/14/19 10/14/19 10/14/19 14:45 14:11 14:11 Sodium 140 Potassium 4.0 Chloride 107 Carbon Dioxide 28 Anion Gap 4 L BUN 10.2 Creatinine 0.5 L Est GFR (CKD-EPI)AfAm 155.90 Est GFR (CKD-EPI)NonAf 134.52 Random Glucose 72 L Lactic Acid 0.6 Calcium 9.0 Total Bilirubin 0.2 AST 21 ALT 23 Alkaline Phosphatase 57 Total Protein 6.8 Albumin 3.5 Lipase 144 Urine Color Urine Appearance Urine pH Ur Specific [place] Urine Protein Urine Glucose (UA) Urine Ketones Urine Blood Urine Nitrite Urine Bilirubin Urine Urobilinogen Ur Leukocyte Esterase Urine HCG, Qual Negative 10/14/19 14:11 Sodium Potassium Chloride Carbon Dioxide Anion Gap BUN Creatinine Est GFR (CKD-EPI)AfAm Est GFR (CKD-EPI)NonAf Random Glucose Lactic Acid Calcium Total Bilirubin AST ALT Alkaline Phosphatase Total Protein Albumin Lipase Urine Color Yellow Urine Appearance Clear Urine pH 8.0 Ur Specific [place] 1.012 Urine Protein Negative Urine Glucose (UA) Negative Urine Ketones Negative Urine Blood Negative Urine Nitrite Negative Urine Bilirubin Negative Urine Urobilinogen 0.2 Ur Leukocyte Esterase Negative Urine HCG, Qual 10/14/19 14:11 RBC 3.90 MCV 87.3 MCHC 33.9 RDW 13.4 MPV 8.3 Neutrophils % 59.0 D Lymphocytes % 30.3 D Monocytes % 8.3 Eosinophils % 1.7 D Basophils % 0.7 - Medications Given in the ED: ED Medications Discontinued Medications Generic Name Dose Route Start Last Admin Trade Name Freq PRN Reason Stop Dose Admin Acetaminophen 1,000 mg 10/14/19 15:51 10/14/19 17:17 Ofirmev Injection - IVPB 10/14/19 15:52 1,000 mg ONCE ONE Administration Sodium Chloride 1,000 mls @ 1,000 mls/hr 10/14/19 13:28 10/14/19 14:18 Normal Saline - IV 10/14/19 14:27 1,000 mls/hr ASDIR STA Administration Ketorolac Tromethamine 30 mg 10/14/19 13:52 10/14/19 14:45 Toradol Injection - IVPUSH 10/14/19 13:53 30 mg ONCE ONE Administration Metoclopramide HCl 10 mg 10/14/19 13:52 10/14/19 14:45 Reglan Injection - IVPUSH 10/14/19 13:53 10 mg ONCE ONE Administration Sodium Chloride 1,000 ml 10/14/19 15:28 10/14/19 15:46 Normal Saline - IV 10/14/19 15:29 1,000 ml ONCE ONE Administration <Francis Dale - Last Filed: 10/14/19 17:36> Medical Decision Making - Medical Decision Making 10/14/19 17:24 23 yo F , 2 terminations, 1 miscarriage, gestational diabetes, anemia, C- section 4 months ago at 29 weeks due to ruptured membranes, currently breast- feeding presents complaining of constant frontal headache x 4 days with nausea and light sensitivity. Reports approximately 15 episodes of non bloody diarrhea since yesterday with abdominal cramping. Denies fever, chills, shortness of breath, cough, back pain, urinary symptoms, vaginal bleeding, rash, sick contacts, recent travel. States she was evaluated at [facility] 2 days ago for SCOTT, given vancomycin for unknown reason which she developed a rash and was treated with iv benadryl. Headache feels much better today compared to visit 2 days ago at [facility]. Concerned about her diarrhea today. Labs and UA reviewed with patient Patient feels better after Toradol, Reglan, IV acetaminophen and 2 L of IV fluids Patient tolerated p.o. No episodes of diarrhea while in the ED Neurologically intact Ambulatory Stable for discharge <Kyay Paz - Last Filed: 10/14/19 17:23> - Medical Decision Making 10/14/19 17:36 I reviewed the case of the mid-level practitioner and was available for consultation while in the emergency department <Francis Dale - Last Filed: 10/14/19 17:36> Discharge - Discharge Information Problems reviewed: Yes - Admission No <Kayy Paz - Last Filed: 10/14/19 17:23> <Francis Dale - Last Filed: 10/14/19 17:36> - Discharge Information Clinical Impression/Diagnosis: Diarrhea Qualifiers: Diarrhea type: unspecified type Qualified Code(s): R19.7 - Diarrhea, unspecified Condition: Stable Disposition: HOME - Follow up/Referral Referrals: [facility] [place] [Provider Group] - Patient Discharge Instructions Additional Instructions: Follow-up with your doctor within 1 week Remain hydrated Rest, take acetaminophen 650 mg every 6 hours as needed for pain Return to ED if persistent headache despite taking medications, nausea, vomiting, fever, chills, rash or any concerning symptoms
[2019-10-14] MEDS ORDERED: METOCLOPRAMIDE HCL INJECTION 10 MG/2 ML VIAL ONE (14:38)
[2019-10-14] MEDS ORDERED: KETOROLAC TROMETHAMINE 30 MG/1 ML VIAL ONE (14:38)
[2019-10-14 15:09] LABS: URINE APPEARANCE CLEAR; URINE BILIRUBIN NEGATIVE (NEGATIVE); URINE COLOR YELLOW; URINE GLUCOSE (UA) NEGATIVE (NEGATIVE); URINE KETONE NEGATIVE (NEGATIVE); URINE LEUK ESTERASE NEGATIVE (NEGATIVE); URINE NITRITE NEGATIVE (NEGATIVE); URINE PROTEIN NEGATIVE (NEGATIVE); URINE UROBILINOGEN 0.2 mg/dL (0.2-1.0)
[2019-10-14 15:11] LABS: BASO % 0.7 % (0-2.0); EOS % 1.7 % (0-4.5); HEMATOCRIT 34.1 % (32.4-45.2); HEMOGLOBIN 11.5 GM/dL (10.7-15.3); LYMPH % 30.3 % (8-40); MCH 29.6 pg (25.7-33.7); MCHC 33.9 g/dl (32.0-36.0); MEAN CELL VOLUME 87.3 fl (80-96); MEAN PLT VOLUME 8.3 fl (7.5-11.1); MONO % 8.3 % (3.8-10.2); PLATELET COUNT 176 K/MM3 (134-434); RDW 13.4 % (11.6-15.6); WHITE BLOOD COUNT 4.9 K/mm3 (4.0-10.0)
[2019-10-14] MEDS ORDERED: SODIUM CHLORIDE 0.9% 500 ML INFUS.BAG IV ONE (15:28)
[2019-10-14 15:39] LABS: ALBUMIN 3.5 g/dl (3.4-5.0); BILIRUBIN,TOTAL 0.2 mg/dL (0.2-1); BLOOD UREA NITROGEN 10.2 mg/dL (7-18); CREATININE 0.5 mg/dL (0.55-1.3); TOT PROT 6.8 g/dl (6.4-8.2)
[2019-10-14] MEDS ORDERED: ACETAMINOPHEN 1000 MG/100 ML VIAL (NON FORMULARY) IVPB ONE (15:51)
[2019-10-14] MEDS ORDERED: ACETAMINOPHEN INJECTION 100 ML IVPB ONE (17:18)
[2019-10-14 17:32] VITALS: BP 118/62; PULSE 68
[2019-10-14 17:39] VITALS: TEMP 98
== END 2019-10-14 17:39 | disposition home or self-care (01) ==
LOC: JER 13:15
PROC: 3E0333Z Introduction of Anti-inflammatory into Peripheral Vein, Percutaneous Approach (ICD-10-PCS; principal; 2019-10-14)
PROC: 3E033GC Introduction of Other Therapeutic Substance into Peripheral Vein, Percutaneous Approach (ICD-10-PCS; 2019-10-14)
PROC: 3E0337Z Introduction of Electrolytic and Water Balance Substance into Peripheral Vein, Percutaneous Approach (ICD-10-PCS; 2019-10-14)
DX: R19.7 Diarrhea, unspecified (principal)
CPT/HCPCS: 36415; 80053; 81003; 83605; 83690; 84703; 85025; 87086; 99283-25; J0131

== ENCOUNTER 2020-05-05 16:11 | Emergency (ER) | payer OTHER ==
[2020-05-05 16:17] VITALS: BP 105/59; PULSE 82; TEMP 97.8; BMI 18.1
[2020-05-05 17:34] LABS: BASO % 0.6 % (0-2.0); EOS % 3.1 % (0-4.5); HEMATOCRIT 36.4 % (32.4-45.2); HEMOGLOBIN 12.7 GM/dL (10.7-15.3); LYMPH % 28.4 % (8-40); MCH 30.9 pg (25.7-33.7); MCHC 34.9 g/dl (32.0-36.0); MEAN CELL VOLUME 88.5 fl (80-96); MEAN PLT VOLUME 7.6 fl (7.5-11.1); MONO % 7.6 % (3.8-10.2); NEUT % 60.3 % (42.8-82.8); PLATELET COUNT 222 K/MM3 (134-434); RBC 4.11 M/mm3 (3.60-5.2); RDW 12.9 % (11.6-15.6); WHITE BLOOD COUNT 4.7 K/mm3 (4.0-10.0)
[2020-05-05 17:53] LABS: ALBUMIN 4.2 g/dl (3.4-5.0); BLOOD UREA NITROGEN 9.4 mg/dL (7-18); CALCIUM 9.3 mg/dL (8.5-10.1)
[2020-05-05 17:57] LABS: CREATININE 0.5 mg/dL (0.55-1.3)
[2020-05-05 17:59] LABS: BILIRUBIN,TOTAL 0.2 mg/dL (0.2-1)
[2020-05-05 19:33] LABS: URINE APPEARANCE CLEAR; URINE BILIRUBIN NEGATIVE (NEGATIVE); URINE COLOR YELLOW; URINE GLUCOSE (UA) NEGATIVE (NEGATIVE); URINE KETONE NEGATIVE (NEGATIVE); URINE LEUK ESTERASE NEGATIVE (NEGATIVE); URINE NITRITE NEGATIVE (NEGATIVE); URINE PROTEIN NEGATIVE (NEGATIVE); URINE UROBILINOGEN 0.2 mg/dL (0.2-1.0)
== END 2020-05-05 20:59 | disposition home or self-care (01) ==
LOC: JER 16:11
DX: O20.9 Hemorrhage in early pregnancy, unspecified (principal); Z3A.01 Less than 8 weeks gestation of pregnancy
CPT/HCPCS: 36415; 76817-TC; 80053; 81003; 84702; 85025; 87086; 99284-25

== ENCOUNTER 2020-05-12 19:42 | Day surgery (SDC) | payer OTHER ==
[2020-05-12] MEDS ORDERED: SODIUM CHLORIDE 1,000 ML IV STA (20:01)
[2020-05-12] MEDS ORDERED: ONDANSETRON 4 MG/2 ML VIAL IVPUSH ONE (20:03)
[2020-05-12] MEDS ORDERED: MEPERIDINE HCL 25 MG/ML VIAL IM ONE (20:03)
[2020-05-12] MEDS ORDERED: MEPERIDINE HCL 25 MG/ML VIAL ONE (20:22)
[2020-05-12] MEDS ORDERED: ONDANSETRON 4 MG/2 ML VIAL ONE (20:22)
[2020-05-12 21:30] LABS: BASO % 0.5 % (0-2.0); HEMATOCRIT 36.9 % (32.4-45.2); HEMOGLOBIN 12.3 GM/dL (10.7-15.3); LYMPH % 10.7 % (8-40); MCH 29.9 pg (25.7-33.7); MCHC 33.4 g/dl (32.0-36.0); MEAN CELL VOLUME 89.3 fl (80-96); MONO % 7.5 % (3.8-10.2); NEUT % 80.3 % (42.8-82.8); PLATELET COUNT 229 K/MM3 (134-434); RBC 4.13 M/mm3 (3.60-5.2); RDW 12.4 % (11.6-15.6); WHITE BLOOD COUNT 5.9 K/mm3 (4.0-10.0)
[2020-05-12 21:39] LABS: INR 0.94 (0.83-1.09); PROTHROMBIN TIME (PATIENT) 11.6 SEC (9.7-13.0)
[2020-05-12 21:48] LABS: POTASSIUM 4.3 mmol/L (3.5-5.1)
[2020-05-12 21:50] LABS: BLOOD UREA NITROGEN 16.4 mg/dL (7-18); CALCIUM 9.6 mg/dL (8.5-10.1)
[2020-05-12 21:53] LABS: CREATININE 0.5 mg/dL (0.55-1.3)
[2020-05-12 21:55] LABS: BILIRUBIN,TOTAL 0.5 mg/dL (0.2-1); TOT PROT 7.7 g/dl (6.4-8.2)
[2020-05-12] MEDS ORDERED: morphine CARPU-JECT 4 MG/1 ML DISP.SYRIN IVPUSH ONE (22:51)
[2020-05-12] MEDS ORDERED: morphine SULFATE 4 MG/ML VIAL ONE (23:03)
[2020-05-12 23:24] LABS: EPI CELLS 16 /uL (0-25.1); HYALINE CASTS 0 /uL (0-3.1); PH,URINE 5.5 (5.0-8.0); URINE APPEARANCE CLEAR; URINE BACTERIA 131 /uL (0-1359); URINE BILIRUBIN NEGATIVE (NEGATIVE); URINE COLOR YELLOW; URINE GLUCOSE (UA) NEGATIVE (NEGATIVE); URINE KETONE 2+ (NEGATIVE); URINE LEUK ESTERASE NEGATIVE (NEGATIVE); URINE NITRITE NEGATIVE (NEGATIVE); URINE PROTEIN NEGATIVE (NEGATIVE); URINE RBC 734 /uL (0-23.9); URINE UROBILINOGEN 0.2 mg/dL (0.2-1.0); URINE WBC 6 /uL (0-25.8)
[2020-05-13] MEDS ORDERED: MEPERIDINE HCL 25 MG/ML VIAL IM PRN (00:22)
[2020-05-13] MEDS: ELECTROLYTE-148 SOLN 1,000 ML IV SCH ×2 (00:28→03:54)
[2020-05-13 04:12] VITALS: BMI 18.1
[2020-05-13 07:21] LABS: BASO % 0.6 % (0-2.0); EOS % 0.6 % (0-4.5); HEMATOCRIT 33.2 % (32.4-45.2); HEMOGLOBIN 11.4 GM/dL (10.7-15.3); LYMPH % 15.4 % (8-40); MCH 30.7 pg (25.7-33.7); MCHC 34.4 g/dl (32.0-36.0); MEAN CELL VOLUME 89.2 fl (80-96); MEAN PLT VOLUME 7.8 fl (7.5-11.1); MONO % 10.4 % (3.8-10.2); PLATELET COUNT 176 K/MM3 (134-434); RBC 3.73 M/mm3 (3.60-5.2); RDW 12.5 % (11.6-15.6); WHITE BLOOD COUNT 4.7 K/mm3 (4.0-10.0)
[2020-05-13] MEDS ORDERED: IBUPROFEN 400 MG TABLET (FP) PO PRN (08:05)
[2020-05-13] MEDS ORDERED: ACETAMINOPHEN 325 MG TABLET (FP) PO PRN (08:05)
[2020-05-13] MEDS ORDERED: ceFAZolin 2 GRAM PREMIX BAG IVPB ONE (08:20)
[2020-05-13] MEDS ORDERED: ONDANSETRON 4 MG/2 ML VIAL IVPUSH PRN (09:00)
[2020-05-13] MEDS ORDERED: LACTATED RINGERS SOLUTION 1,000 ML IV SCH (09:00)
[2020-05-13] MEDS ORDERED: oxyCODONE HCL 5 MG TABLET PO PRN ×2 (09:00)
[2020-05-13 13:58] VITALS: BP 99/54; PULSE 87; TEMP 99
== END 2020-05-13 15:07 | disposition home or self-care (01) ==
LOC: JER 19:42 → JASUSAT 23:51 → JERBED 23:51 → UNDOADMIN 23:51 → J7W 05-13 03:42 → JERBED 05-13 03:42 → JASUSAT 05-13 15:07
PROVIDERS: ATTEND Obstetrics & Gynecology
PROC: 10D17ZZ Extraction of Products of Conception, Retained, Via Natural or Artificial Opening (ICD-10-PCS; principal; 2020-05-12)
DX: O02.1 Missed abortion (principal); U07.1 COVID-19
CPT/HCPCS: 36415; 76817-TC; 80053; 81003; 84702; 85025; 85610; 86850; 86900; 86901; 87086; 88305-TC; 94760; 99284-25; C9803; U0003

== ENCOUNTER → 2020-05-13 | Day surgery (SDC) | payer OTHER ==
[2020-05-12 15:23] VITALS: BMI 18.8
[~2020-05-13] MED LIST: ACETAMINOPHEN INJECTION 100 ML IVPB ONE; DEXAMETHASONE SOD PHOSPHATE 4 MG/1 ML VIAL ONE; KETOROLAC TROMETHAMINE 30 MG/1 ML VIAL ONE; LIDOCAINE HCL/PF 2% SDV 5ML VIAL ONE; MIDAZOLAM HCL 2 MG/2 ML SINGLE DOSE VIAL ONE; PROPOFOL 20 ML ONE; ROCURONIUM BROMIDE 50 MG/5 ML SYRINGE ONE; SUCCINYLCHOLINE CHLORIDE 200 MG/10 ML SYRINGE ONE; ceFAZolin SODIUM 1 GM VIAL ONE
[2020-05-13 09:28] LABS: INR 1.11 (0.83-1.09); PROTHROMBIN TIME (PATIENT) 13.4 SEC (9.7-13.0)
== END | disposition home or self-care (01) ==
LOC: JASU-SURG 05:20
PROVIDERS: ATTEND Obstetrics & Gynecology
DX: Z53.8 Procedure and treatment not carried out for other reasons (principal)
CPT/HCPCS: 36415; 85610; 85730; J0131

== ENCOUNTER 2020-08-15 12:59 | Emergency (ER) | payer OTHER ==
[2020-08-15 13:12] VITALS: BP 102/70; PULSE 104; TEMP 98.9; BMI 18.4
[2020-08-15] MEDS ORDERED: KETOROLAC TROMETHAMINE 30 MG/1 ML VIAL IM ONE (13:36)
[2020-08-15 13:58] LABS: EPI CELLS 20 /uL (0-25.1); HYALINE CASTS 1 /uL (0-3.1); PH,URINE 6.5 (5.0-8.0); URINE APPEARANCE CLEAR; URINE BACTERIA 761 /uL (0-1359); URINE BILIRUBIN NEGATIVE (NEGATIVE); URINE COLOR YELLOW; URINE GLUCOSE (UA) NEGATIVE (NEGATIVE); URINE KETONE TRACE (NEGATIVE); URINE LEUK ESTERASE TRACE (NEGATIVE); URINE NITRITE NEGATIVE (NEGATIVE); URINE PROTEIN NEGATIVE (NEGATIVE); URINE RBC 5 /uL (0-23.9); URINE WBC 22 /uL (0-25.8)
[2020-08-15 13:59] LABS: HCG,QUALITATIVE URINE Negative
[2020-08-15] MEDS ORDERED: CEPHALEXIN MONOHYDRATE 500 MG CAPSULE (UD) PO ONE (14:04)
[2020-08-15] MEDS ORDERED: CEPHALEXIN MONOHYDRATE 500 MG CAPSULE (UD) ONE (14:21)
[2020-08-15] MEDS ORDERED: KETOROLAC TROMETHAMINE 30 MG/1 ML VIAL ONE (14:21)
== END 2020-08-15 16:00 | disposition home or self-care (01) ==
LOC: JER 12:59 → JERFT 12:59
PROC: 3E0233Z Introduction of Anti-inflammatory into Muscle, Percutaneous Approach (ICD-10-PCS; principal; 2020-08-15)
DX: N61.0 Mastitis without abscess (principal)
CPT/HCPCS: 81003; 84703; 87086; 99284-25

== ENCOUNTER 2020-12-10 18:02 | Emergency (ER) | payer OTHER ==
[2020-12-10 18:13] VITALS: BP 101/64; PULSE 83; TEMP 98.1; BMI 19.9
[2020-12-10] MEDS ORDERED: ACETAMINOPHEN 500 MG TABLET (FP) PO ONE (20:04)
[2020-12-10] MEDS ORDERED: ACETAMINOPHEN 500 MG TABLET (FP) ONE (20:05)
== END 2020-12-10 21:47 | disposition home or self-care (01) ==
LOC: JERFT 18:02
DX: S06.0X0A Concussion without loss of consciousness, initial encounter (principal); W22.8XXA Striking against or struck by other objects, initial encounter
CPT/HCPCS: 70450-TC; 99284-25

== ENCOUNTER 2021-03-25 14:23 | Emergency (ER) | payer OTHER ==
[2021-03-25 14:48] VITALS: BP 118/78; PULSE 104; TEMP 97.9; BMI 19.2
[2021-03-25] MEDS ORDERED: KETOROLAC TROMETHAMINE 30 MG/1 ML VIAL IM ONE (15:31)
[2021-03-25] MEDS ORDERED: KETOROLAC TROMETHAMINE 30 MG/1 ML VIAL ONE (16:17)
== END 2021-03-25 18:17 | disposition home or self-care (01) ==
LOC: JER 14:23
PROC: 3E0233Z Introduction of Anti-inflammatory into Muscle, Percutaneous Approach (ICD-10-PCS; principal; 2021-03-25)
DX: N61.0 Mastitis without abscess (principal)
CPT/HCPCS: 76642-TC-RT; 99284-25

== ENCOUNTER 2021-11-09 16:47 | Emergency (ER) | payer OTHER ==
[2021-11-09 16:54] VITALS: BP 109/68; PULSE 81; RESP 18; TEMP 97.8; BMI 20.6
[2021-11-09] MEDS ORDERED: LACTATED RINGERS SOLUTION 1000 ML INFUS.BAG IV ONE (18:01)
[2021-11-09 18:48] LABS: EOS % 1.5 % (0-4.5); HEMATOCRIT 40.6 % (32.4-45.2); HEMOGLOBIN 13.9 GM/dL (10.7-15.3); LYMPH % 36.4 % (8-40); MCH 30.2 pg (25.7-33.7); MCHC 34.3 g/dl (32.0-36.0); MEAN CELL VOLUME 87.9 fl (80-96); MEAN PLT VOLUME 7.3 fl (7.5-11.1); MONO % 9.6 % (3.8-10.2); NEUT % 51.5 % (42.8-82.8); PLATELET COUNT 199 10^3/uL (134-434); RBC 4.62 M/mm3 (3.60-5.2); RDW 12.1 % (11.6-15.6); WHITE BLOOD COUNT 4.7 K/mm3 (4.0-10.0)
[2021-11-09 19:05] LABS: CHLORIDE 107 mmol/L (98-107); INR 0.95 (0.83-1.09); PROTHROMBIN TIME (PATIENT) 10.9 SEC (9.7-13.0); SODIUM 141 mmol/L (136-145)
[2021-11-09 19:08] LABS: ALBUMIN 4.1 g/dl (3.4-5.0); ANION GAP 6 MMOL/L (8-16); BLOOD UREA NITROGEN 6.9 mg/dL (7-18); CALCIUM 9.5 mg/dL (8.5-10.1); CO2 28 mmol/L (21-32); GLUCOSE,RANDOM 99 mg/dL (74-106)
[2021-11-09 19:11] LABS: CREATININE 0.7 mg/dL (0.55-1.3); SGOT/AST 21 U/L (15-37); SGPT/ALT 22 U/L (13-61)
[2021-11-09 19:13] LABS: BILIRUBIN,TOTAL 0.3 mg/dL (0.2-1); TOT PROT 7.6 g/dl (6.4-8.2)
[2021-11-09 19:14] LABS: ALK PHOS 77 U/L (45-117)
== END 2021-11-09 19:55 | disposition home or self-care (01) ==
LOC: JER 16:47
DX: R42 Dizziness and giddiness (principal)
CPT/HCPCS: 36415; 70450-TC; 71046-TC-FY; 80053; 83735; 84439; 84443; 84484; 84703; 85025; 85610; 93005; 93010; 99285-25

== ENCOUNTER 2021-11-15 19:33 | Emergency (ER) | payer OTHER ==
[2021-11-15 19:58] VITALS: BP 97/62; PULSE 88; RESP 18; TEMP 98.4; BMI 20.5
[2021-11-15] MEDS ORDERED: CEPHALEXIN MONOHYDRATE 500 MG CAPSULE (UD) PO ONE (20:57)
[2021-11-15] MEDS ORDERED: CEPHALEXIN MONOHYDRATE 500 MG CAPSULE (UD) ONE (21:01)
== END 2021-11-15 21:09 | disposition home or self-care (01) ==
LOC: JER 19:33 → JERFT 19:33
DX: N61.0 Mastitis without abscess (principal)
CPT/HCPCS: 99283-25

== ENCOUNTER 2022-02-28 17:54 | Emergency (ER) | payer OTHER ==
[2022-02-28 18:35] VITALS: BP 131/82; PULSE 98; RESP 20; TEMP 100; BMI 23.0
[2022-02-28] MEDS ORDERED: DEXAMETHASONE SOD PHOSPHATE 10 MG/1 ML VIAL PO ONE (21:40)
[2022-02-28] MEDS ORDERED: ACETAMINOPHEN 500 MG TABLET (FP) PO ONE (21:40)
[2022-02-28] MEDS ORDERED: DEXAMETHASONE SOD PHOSPHATE 10 MG/1 ML VIAL ONE (21:49)
[2022-02-28] MEDS ORDERED: ACETAMINOPHEN 500 MG TABLET (FP) ONE (21:49)
== END 2022-02-28 22:30 | disposition home or self-care (01) ==
LOC: JER 17:54
DX: U07.1 COVID-19 (principal)
CPT/HCPCS: 0241U-QW; 99283-25; J1100

== ENCOUNTER 2022-09-09 13:32 | Emergency (ER) | payer OTHER ==
[2022-09-09 13:46] VITALS: BP 115/76; PULSE 84; RESP 19; TEMP 98.5; BMI 24.1
[2022-09-09] MEDS ORDERED: SODIUM CHLORIDE 0.9% 500 ML INFUS.BAG IV ONE (14:36)
[2022-09-09] MEDS ORDERED: ONDANSETRON 4 MG/2 ML VIAL IVPUSH ONE (14:37)
[2022-09-09] MEDS ORDERED: ONDANSETRON 4 MG/2 ML VIAL ONE (14:50)
[2022-09-09 15:12] LABS: BASO % 0.8 % (0-2.0); EOS % 1.4 % (0-4.5); HEMATOCRIT 39.9 % (32.4-45.2); HEMOGLOBIN 13.3 GM/dL (10.7-15.3); LYMPH % 30.6 % (8-40); MCH 29.4 pg (25.7-33.7); MCHC 33.2 g/dl (32.0-36.0); MEAN CELL VOLUME 88.7 fl (80-96); MEAN PLT VOLUME 7.9 fl (7.5-11.1); MONO % 11.1 % (3.8-10.2); NEUT % 56.1 % (42.8-82.8); PH,URINE 6.5 (5.0-8.0); PLATELET COUNT 238 10^3/uL (134-434); RBC 4.51 M/mm3 (3.60-5.2); RDW 13.1 % (11.6-15.6); URINE APPEARANCE CLEAR; URINE BILIRUBIN NEGATIVE (NEGATIVE); URINE COLOR YELLOW; URINE GLUCOSE (UA) NEGATIVE (NEGATIVE); URINE KETONE NEGATIVE (NEGATIVE); URINE LEUK ESTERASE NEGATIVE (NEGATIVE); URINE NITRITE NEGATIVE (NEGATIVE); URINE PROTEIN NEGATIVE (NEGATIVE); URINE UROBILINOGEN 0.2 mg/dL (0.2-1.0); WHITE BLOOD COUNT 3.9 K/mm3 (4.0-10.0)
[2022-09-09 15:23] LABS: CHLORIDE 108 mmol/L (98-107); POTASSIUM 4.2 mmol/L (3.5-5.1); SODIUM 142 mmol/L (136-145)
[2022-09-09 15:26] LABS: ANION GAP 6 MMOL/L (8-16); BLOOD UREA NITROGEN 6.1 mg/dL (7-18); CALCIUM 9.1 mg/dL (8.5-10.1); CO2 28 mmol/L (21-32); GLUCOSE,RANDOM 89 mg/dL (74-106); LIPASE 87 U/L (73-393)
[2022-09-09 15:27] LABS: ALBUMIN 3.8 g/dl (3.4-5.0)
[2022-09-09 15:29] LABS: CREATININE 0.7 mg/dL (0.55-1.3); SGOT/AST 31 U/L (15-37); SGPT/ALT 45 U/L (13-61)
[2022-09-09 15:31] LABS: BILIRUBIN,TOTAL 0.5 mg/dL (0.2-1); TOT PROT 7.1 g/dl (6.4-8.2)
[2022-09-09 15:32] LABS: ALK PHOS 66 U/L (45-117)
[2022-09-09] MEDS ORDERED: FAMOTIDINE 20 MG TABLET PO ONE (15:41)
[2022-09-09] MEDS ORDERED: MAG HYDROX/AL HYDROX/SIMETH 30 ML UNIT-DOSE CUP PO ONE (15:42)
[2022-09-09] MEDS ORDERED: FAMOTIDINE 20 MG TABLET ONE (16:24)
[2022-09-09] MEDS ORDERED: MAG HYDROX/AL HYDROX/SIMETH 30 ML UNIT-DOSE CUP ONE (16:24)
== END 2022-09-09 17:50 | disposition home or self-care (01) ==
LOC: JER 13:32
PROC: 3E033GC Introduction of Other Therapeutic Substance into Peripheral Vein, Percutaneous Approach (ICD-10-PCS; principal; 2022-09-09)
DX: R11.2 Nausea with vomiting, unspecified (principal); R63.8 Other symptoms and signs concerning food and fluid intake; R10.813 Right lower quadrant abdominal tenderness
CPT/HCPCS: 36415; 80053; 81003; 83690; 84702; 85025; 87086; 93005; 93010; 99284-25

== ENCOUNTER 2023-01-22 11:05 | Emergency (ER) | payer OTHER ==
[2023-01-22] MEDS ORDERED: ONDANSETRON 4 MG/2 ML VIAL IVPUSH ONE (11:36)
[2023-01-22] MEDS ORDERED: ACETAMINOPHEN 1000 MG/100 ML BAG IVPB ONE (11:36)
[2023-01-22] MEDS ORDERED: SODIUM CHLORIDE 0.9% 500 ML INFUS.BAG IV ONE (11:36)
[2023-01-22] MEDS ORDERED: ACETAMINOPHEN INJECTION 100 ML IVPB ONE (11:52)
[2023-01-22] MEDS ORDERED: ONDANSETRON 4 MG/2 ML VIAL ONE (11:52)
[2023-01-22 12:12] LABS: HEMATOCRIT 44.8 % (32.4-45.2); HEMOGLOBIN 14.9 GM/dL (10.7-15.3); MCH 29.3 pg (25.7-33.7); MCHC 33.3 g/dl (32.0-36.0); MEAN CELL VOLUME 87.9 fl (80-96); MEAN PLT VOLUME 7.5 fl (7.5-11.1); PLATELET COUNT 223 10^3/uL (134-434); RBC 5.09 M/mm3 (3.60-5.2); RDW 12.5 % (11.6-15.6); WHITE BLOOD COUNT 10.3 K/mm3 (4.0-10.0)
[2023-01-22 12:31] VITALS: BP 113/72; PULSE 113; RESP 18; TEMP 98; BMI 23.3
[2023-01-22 12:37] LABS: ALBUMIN 4.2 g/dl (3.4-5.0); CALCIUM 8.9 mg/dL (8.5-10.1)
[2023-01-22 12:40] LABS: CREATININE 0.9 mg/dL (0.55-1.3)
[2023-01-22 12:42] LABS: BILIRUBIN,TOTAL 0.6 mg/dL (0.2-1); TOT PROT 7.8 g/dl (6.4-8.2)
[2023-01-22 12:48] LABS: ANISOCYTOSIS 1+; MACROCYTOSIS 0; OVALOCYTE 1+
[2023-01-22 14:39] LABS: PH,URINE 5.5 (5.0-8.0); URINE APPEARANCE CLEAR; URINE BILIRUBIN NEGATIVE (NEGATIVE); URINE COLOR YELLOW; URINE GLUCOSE (UA) NEGATIVE (NEGATIVE); URINE KETONE 1+ (NEGATIVE); URINE LEUK ESTERASE NEGATIVE (NEGATIVE); URINE NITRITE NEGATIVE (NEGATIVE); URINE PROTEIN NEGATIVE (NEGATIVE); URINE UROBILINOGEN 0.2 mg/dL (0.2-1.0)
[2023-01-22 14:41] LABS: HCG,QUALITATIVE URINE Negative
[2023-01-22] MEDS ORDERED: MAG HYDROX/AL HYDROX/SIMETH 30 ML UNIT-DOSE CUP PO ONE (14:50)
[2023-01-22] MEDS ORDERED: FAMOTIDINE 20 MG TABLET PO ONE (14:50)
[2023-01-22] MEDS ORDERED: FAMOTIDINE 20 MG TABLET ONE (14:57)
[2023-01-22] MEDS ORDERED: MAG HYDROX/AL HYDROX/SIMETH 30 ML UNIT-DOSE CUP ONE (14:58)
== END 2023-01-22 15:20 | disposition home or self-care (01) ==
LOC: JER 11:05
PROC: 3E033NZ Introduction of Analgesics, Hypnotics, Sedatives into Peripheral Vein, Percutaneous Approach (ICD-10-PCS; principal; 2023-01-22)
PROC: 3E033GC Introduction of Other Therapeutic Substance into Peripheral Vein, Percutaneous Approach (ICD-10-PCS; 2023-01-22)
DX: A08.4 Viral intestinal infection, unspecified (principal); R11.2 Nausea with vomiting, unspecified; R19.7 Diarrhea, unspecified; R10.13 Epigastric pain
CPT/HCPCS: 36415; 80053; 81003; 83690; 84703; 85025; 87086; 96374; 96375; 99284-25

== ENCOUNTER 2023-03-11 22:21 | Emergency (ER) | payer OTHER ==
[2023-03-11 22:28] VITALS: BP 118/72; TEMP 98.5; BMI 23.8
[2023-03-11] MEDS ORDERED: LORazepam 2 MG TABLET PO ONE (23:20)
[2023-03-11] MEDS ORDERED: LORazepam 0.5 MG TABLET ONE (23:30)
[2023-03-11 23:40] VITALS: PULSE 87; RESP 18
== END 2023-03-11 23:57 | disposition home or self-care (01) ==
LOC: JER 22:21
DX: R00.0 Tachycardia, unspecified (principal); R42 Dizziness and giddiness; T44.995A Adverse effect of other drug primarily affecting the autonomic nervous system, initial encounter
CPT/HCPCS: 99283-25

== ENCOUNTER 2023-08-01 05:27 | Emergency (ER) | payer OTHER ==
[2023-08-01 05:33] VITALS: BMI 24.1
[2023-08-01] MEDS ORDERED: ACETAMINOPHEN INJECTION 100 ML IVPB ONE (05:59)
[2023-08-01] MEDS ORDERED: ONDANSETRON 4 MG/2 ML VIAL ONE (05:59)
[2023-08-01] MEDS ORDERED: FAMOTIDINE 20 MG/50 ML IVPB 20 MG/50 ML MG IVPB ONE (06:00)
[2023-08-01] MEDS: ONDANSETRON 4 MG/2 ML VIAL IVPUSH ONE (06:19)
[2023-08-01] MEDS: SODIUM CHLORIDE 0.9% 500 ML INFUS.BAG IV ONE (06:19)
[2023-08-01] MEDS: FAMOTIDINE 20 MG/50 ML IVPB 20 MG/50 ML MG IVPB ONE (06:19)
[2023-08-01] MEDS: ACETAMINOPHEN 1000 MG/100 ML BAG IVPB ONE (06:19)
[2023-08-01 06:36] LABS: BASO % 1.1 % (0-2.0); EOS % 1.7 % (0-4.5); HEMATOCRIT 40.3 % (32.4-45.2); HEMOGLOBIN 13.7 GM/dL (10.7-15.3); LYMPH % 35.5 % (8-40); MCH 29.8 pg (25.7-33.7); MEAN CELL VOLUME 87.7 fl (80-96); MEAN PLT VOLUME 7.7 fl (7.5-11.1); MONO % 7.6 % (3.8-10.2); NEUT % 54.1 % (42.8-82.8); PLATELET COUNT 202 10^3/uL (134-434); RBC 4.59 M/mm3 (3.60-5.2); RDW 12.4 % (11.6-15.6); WHITE BLOOD COUNT 5.9 K/mm3 (4.0-10.0)
[2023-08-01 06:57] LABS: ALBUMIN 4.1 g/dl (3.4-5.0); BLOOD UREA NITROGEN 14.3 mg/dL (7-18)
[2023-08-01 07:00] LABS: CREATININE 0.6 mg/dL (0.55-1.3)
[2023-08-01 07:01] LABS: PH,URINE 6.5 (5.0-8.0); URINE APPEARANCE CLEAR; URINE BILIRUBIN NEGATIVE (NEGATIVE); URINE COLOR YELLOW; URINE GLUCOSE (UA) NEGATIVE (NEGATIVE); URINE KETONE NEGATIVE (NEGATIVE); URINE LEUK ESTERASE NEGATIVE (NEGATIVE); URINE NITRITE NEGATIVE (NEGATIVE); URINE PROTEIN NEGATIVE (NEGATIVE); URINE UROBILINOGEN 0.2 mg/dL (0.2-1.0)
[2023-08-01 07:02] LABS: BILIRUBIN,TOTAL 0.4 mg/dL (0.2-1); TOT PROT 7.7 g/dl (6.4-8.2)
[2023-08-01] MEDS ORDERED: MAG HYDROX/AL HYDROX/SIMETH 30 ML UNIT-DOSE CUP ONE (07:09)
[2023-08-01] MEDS: MAG HYDROX/AL HYDROX/SIMETH 30 ML UNIT-DOSE CUP PO ONE (07:14)
[2023-08-01 07:29] VITALS: BP 102/74; PULSE 70; RESP 17; TEMP 97.8
== END 2023-08-01 08:56 | disposition home or self-care (01) ==
LOC: JER 05:27
PROC: 3E033GC Introduction of Other Therapeutic Substance into Peripheral Vein, Percutaneous Approach (ICD-10-PCS; principal; 2023-08-01)
PROC: 3E033NZ Introduction of Analgesics, Hypnotics, Sedatives into Peripheral Vein, Percutaneous Approach (ICD-10-PCS; 2023-08-01)
PROC: 3E033GC Introduction of Other Therapeutic Substance into Peripheral Vein, Percutaneous Approach (ICD-10-PCS; 2023-08-01)
DX: R11.2 Nausea with vomiting, unspecified (principal); R19.7 Diarrhea, unspecified; R07.9 Chest pain, unspecified; R30.0 Dysuria; M79.10 Myalgia, unspecified site; Z20.822 Contact with and (suspected) exposure to COVID-19
CPT/HCPCS: 0241U-QW; 36415; 80053; 81003; 83690; 83735; 84703; 85025; 87086; 93005; 93010; 99284-25; J0131

== ENCOUNTER 2023-10-04 22:09 | Emergency (ER) | payer OTHER ==
[2023-10-04 22:14] VITALS: BP 121/75; PULSE 83; RESP 18; TEMP 98.7; BMI 23.0
[2023-10-04] MEDS ORDERED: diphenhydrAMINE HCL 25 MG CAPSULE (FP) PO ONE (23:06)
[2023-10-04] MEDS ORDERED: FAMOTIDINE 20 MG TABLET ONE (23:06)
[2023-10-04] MEDS ORDERED: MAG HYDROX/AL HYDROX/SIMETH 30 ML UNIT-DOSE CUP ONE (23:07)
[2023-10-04] MEDS: diphenhydrAMINE HCL 25 MG CAPSULE (FP) PO ONE (23:10)
[2023-10-04] MEDS: MAG HYDROX/AL HYDROX/SIMETH 30 ML UNIT-DOSE CUP PO ONE (23:10)
[2023-10-04] MEDS: FAMOTIDINE 20 MG TABLET PO ONE (23:10)
[2023-10-04 23:30] LABS: EPI CELLS >36 /uL (0-25.1); HYALINE CASTS 0 /uL (0-3.1); URINE APPEARANCE CLOUDY; URINE BACTERIA 1383 /uL (0-1359); URINE BILIRUBIN NEGATIVE (NEGATIVE); URINE COLOR YELLOW; URINE GLUCOSE (UA) NEGATIVE (NEGATIVE); URINE KETONE 1+ (NEGATIVE); URINE LEUK ESTERASE TRACE (NEGATIVE); URINE NITRITE NEGATIVE (NEGATIVE); URINE PROTEIN NEGATIVE (NEGATIVE); URINE RBC 14 /uL (0-23.9); URINE WBC 32 /uL (0-25.8)
== END 2023-10-05 00:14 | disposition home or self-care (01) ==
LOC: JER 22:09 → JERFT 22:09 → JER 10-05 00:14
DX: N39.0 Urinary tract infection, site not specified (principal); J02.9 Acute pharyngitis, unspecified; R11.2 Nausea with vomiting, unspecified; M54.50 Low back pain, unspecified; M79.10 Myalgia, unspecified site; R10.30 Lower abdominal pain, unspecified; R30.0 Dysuria; L29.2 Pruritus vulvae; Z20.822 Contact with and (suspected) exposure to COVID-19
CPT/HCPCS: 0241U-QW; 81003; 87086; 87651; 99283-25

== ENCOUNTER 2023-10-12 17:43 | Emergency (ER) | payer OTHER ==
[2023-10-12 17:50] VITALS: BP 110/80; PULSE 73; RESP 18; TEMP 98.6; BMI 23.0
[2023-10-12] MEDS ORDERED: FAMOTIDINE 20 MG TABLET ONE (19:02)
[2023-10-12] MEDS: FAMOTIDINE 20 MG TABLET PO ONE (19:07)
[2023-10-12] MEDS: FLUTICASONE PROP 0.05% 16 GM NASAL SPRAY NS ONE (19:14)
== END 2023-10-12 20:59 | disposition home or self-care (01) ==
LOC: JER 17:43 → JERFT 17:43
DX: U07.1 COVID-19 (principal); J30.89 Other allergic rhinitis
CPT/HCPCS: 0241U-QW; 99283-25